=== PATIENT | female | born 1945 ===

== ENCOUNTER 2016-07-17 17:47 | Inpatient (IN) | payer MEDICAID, MEDICARE ==
[2016-07-17 17:47] VITALS: BMI 26.0
[2016-07-17 19:01] LABS: BASO % 0.6 % (0.0-2.0); EOS # 0.1 K/uL (0.0-0.7); EOS % 0.8 % (0.0-4.0); HEMATOCRIT 33.9 % (34.0-47.0); LYMPH # 1.9 K/uL (1.0-4.3); LYMPH % 24.9 % (20.0-40.0); MEAN CELL VOLUME 90.8 fL (81.0-99.0); MEAN CORPUSCULAR HEMOGLOBIN 30.6 pg (27.0-31.0); MEAN CORPUSCULAR HGB CONC 33.7 g/dL (33.0-37.0); MEAN PLATELET VOLUME 10.5 fL (7.2-11.7); MONO # 0.8 K/uL (0.0-0.8); MONO % 10.4 % (0.0-10.0); NRBC % 0.1 % (0.0-2.0); WHITE BLOOD COUNT 7.8 K/uL (4.8-10.8)
[2016-07-17 19:06] LABS: POTASSIUM 3.5 mmol/L (3.6-5.2)
[2016-07-17 19:08] LABS: BILIRUBIN,TOTAL 0.4 mg/dL (0.2-1.3)
[2016-07-17 19:09] LABS: ALB/GLOB RATIO 0.8 (1.0-2.1); CALCIUM 7.7 mg/dl (8.6-10.4); TOTAL PROTEIN 7.3 g/dL (6.3-8.3)
[2016-07-17 19:33] LABS: TROPONIN I 0.192 ng/mL (0.00-0.120)
[2016-07-17] MEDS ORDERED: Enoxaparin 40 mg Syringe SC STA (19:45)
--- NOTE | 2016-07-17 19:54 | C.PDOC ---
History Of Present Illness The patient, a 70y/o female whose PMHx includes ESRD (dialysis T,Th, F) presents to the ED after being sent from her fpc for evaluation of epigastric discomfort which began after he received Dialysis yesterday. Patient denies fever, chills, nausea, vomiting, diarrhea. Time Seen by Provider: 07/17/16 18:20 Chief Complaint (Nursing): Abdominal Pain History Per: Patient, Other (fpc ) History/Exam Limitations: no limitations Onset/Duration Of Symptoms: Days Current Symptoms Are (Timing): Still Present Location Of Pain/Discomfort: Epigastric Quality Of Discomfort: "Pain" Associated Symptoms: denies: Fever, Chills, Nausea, Vomiting, Diarrhea Abnormal Vaginal Bleeding: No Past Medical History Reviewed: Historical Data, Nursing Documentation, Vital Signs Vital Signs: Last Vital Signs Temp Pulse Resp BP Pulse Ox 100 07/17/16 19:58 - Medical History PMH: CHF (ECHO 2015 concentric LVH with EF 90%), Diabetes, HTN, End Stage Renal Disease, Chronic Kidney Disease Surgical History: CABG (2001) - [facility] Procedures APPLICATION OF SPLINT (09/15/13) COMPRESSION OF BACK USING PRESSURE DRESSING (03/20/16) COMPRESSION OF RIGHT UPPER LEG USING PRESSURE DRESSING (03/20/16) DRAINAGE OF BACK SKIN, EXTERNAL APPROACH (03/20/16) DRAINAGE OF BUTTOCK SKIN, EXTERNAL APPROACH (03/20/16) EXCISION OF BACK SKIN, EXTERNAL APPROACH (03/20/16) EXCISION OF BUTTOCK SKIN, EXTERNAL APPROACH (03/20/16) EXTRACTION OF BACK SKIN, EXTERNAL APPROACH (03/20/16) HEMODIALYSIS (08/11/14) INSERTION OF INFUSION DEV INTO SUP VENA CAVA, PERC APPROACH (05/09/16) INSERTION OF INFUSION DEVICE INTO R [facility], PERC APPROACH (10/21/15) PERFORMANCE OF URINARY FILTRATION, MULTIPLE (03/20/16) PERFORMANCE OF URINARY FILTRATION, SINGLE (05/09/16) REPOSITION RIGHT UPPER FEMUR WITH INT FIX, PERC APPROACH (02/23/16) TRANSFUSE NONAUT PLATELETS IN PERIPH VEIN, PERC (03/20/16) TRANSFUSE NONAUT RED BLOOD CELLS IN PERIPH VEIN, PERC (03/20/16) VENOUS CATHETERIZATION FOR RENAL DIALYSIS (01/05/13) Family History: States: Unknown Family Hx - Social History Hx Tobacco Use: No Hx Alcohol Use: No Hx Substance Use: No - Immunization History Hx Tetanus Toxoid Vaccination: Yes Hx Influenza Vaccination: Yes Hx Pneumococcal Vaccination: Yes Review Of Systems Except As Marked, All Systems Reviewed And Found Negative. Constitutional: Negative for: Fever, Chills Gastrointestinal: Positive for: Abdominal Pain (epigastric discomfort ). Negative for: Nausea, Diarrhea Physical Exam - Physical Exam Appears: Non-toxic, No Acute Distress, Other (elderly, frail ) Skin: Normal Color, Warm, Dry, Other (5x5cm stage 3 sacral decub) Head: Atraumatic, Normacephalic Eye(s): bilateral: Normal Inspection, EOMI Oral Mucosa: Moist Neck: Normal ROM, Supple Chest: Symmetrical, No Deformity, No Tenderness Cardiovascular: Rhythm Regular, No Murmur Respiratory: Normal Breath Sounds, No Rales, No Rhonchi, No Wheezing Gastrointestinal/Abdominal: Soft, No Tenderness, No Guarding, No Rebound Back: Normal Inspection, No Vertebral Tenderness, No Paraspinal Tenderness Extremity: Normal ROM, Capillary Refill (less than 2 seconds) Neurological/Psych: Oriented x3, Normal Speech, Normal Cognition Gait: Steady ED Course And Treatment - Laboratory Results Result Diagrams: 07/17/16 18:58 07/17/16 18:58 Lab Interpretation: Abnormal (trop 0.192H) ECG: Interpreted By Me ECG Rhythm: Sinus Rhythm, R BBB ECG Interpretation: Normal Rate From EC O2 Sat by Pulse Oximetry: 100 (on RA) Pulse Ox Interpretation: Normal - Radiology CXR: Interpreted by Me CXR Interpretation: Yes: No Acute Disease - Other Rad abd x 2 X-Ray: Interpreted by Me (+FOS) Progress Note: labs, EKG, CXR ordered and reviewed. Pt received Lovenox SC. Reevaluation Time: 19:55 Reassessment Condition: Unchanged (remains asymptomatic) - Physician Consult Information Outcome Of Conversation: 1930: d/w PMD- Dr. Merchant- ok to tele obs, ok with Lovenox SQ Medical Decision Making Medical Decision Making: probably low level trop due to ESRD on HD and strain from HTN lovenox given in ED start IV heparin in AM PRN Disposition Doctor Will See Patient In The: Hospital Counseled Patient/Family Regarding: Studies Performed, Diagnosis - Disposition Disposition: HOSPITALIZED Disposition Time: 19:56 Condition: GOOD - Clinical Impression Clinical Impression: Troponin I above reference range, Constipation - Scribe Statement The provider has reviewed the documentation as recorded by the Scribe (Catalina Carranza) Provider Attestation: All medical record entries made by the Scribe were at my direction and personally dictated by me. I have reviewed the chart and agree that the record accurately reflects my personal performance of the history, physical exam, medical decision making, and the department course for this patient. I have also personally directed, reviewed, and agree with the discharge instructions and disposition.
[2016-07-17] MEDS ORDERED: Enoxaparin 60 mg Syringe ONE (20:47)
[2016-07-17] MEDS: (Novolin R) Insulin Human Regular 100 units/ml vial SC SCH (22:31)
--- NOTE | 2016-07-18 09:30 | RAD ---
HISTORY: abd pain, epigastric COMPARISON: Comparison is made to the previous study dated 10/22/2015 FINDINGS: BOWEL: Moderate constipation is noted. Evidence of high-grade bowel obstruction. BONES: Degenerative changes are seen. OTHER FINDINGS: Right-sided hemodialysis catheter in the chest seen. The heart is mildly enlarged. Postsurgical changes are seen. Right iliac vascular stent is seen in place. Foci of vascular calcifications seen in the abdomen and pelvis P IMPRESSION: Moderate constipation. No evidence of bowel obstruction. No evidence of acute pathology in the chest.
--- NOTE | 2016-07-18 09:35 | RAD ---
PROCEDURE: CHEST RADIOGRAPH, 1 VIEW HISTORY: abd pain COMPARISON: Comparison is made to the previous study dated 05/09/2016 FINDINGS: LUNGS: Interval improvement in the lungs since the previous exam. No evidence of acute pulmonary disease. PLEURA: No pneumothorax or pleural fluid seen. CARDIOVASCULAR: The cardiac silhouette is mildly enlarged. Post cardiac surgery changes are noted. OSSEOUS STRUCTURES: Heterogeneous small sclerotic lesion at the right humeral neck again noted. VISUALIZED UPPER ABDOMEN: Normal. OTHER FINDINGS: Diffuse vascular calcification. Right-sided hemodialysis catheter is again seen in place. IMPRESSION: No active disease.
[2016-07-18] MEDS ORDERED: Influenza Virus Vaccine 45 mcg/0.5 ml Syr IM ONE (10:00)
[2016-07-18] MEDS ORDERED: Pneumococcal 23-Valent Vaccine IM ONE (10:00)
[2016-07-18] MEDS: (Novolin R) Insulin Human Regular 100 units/ml vial SC SCH ×4 (10:07→21:24)
[2016-07-18 17:07] LABS: INR 1.1
--- NOTE | 2016-07-18 18:43 | CON ---
DATE: 07/18/2016 REASON FOR CONSULTATION: Elevated troponin. The patient is a 70-year-old female who has history of coronary artery disease, status post coronary artery bypass surgery in 2001 in a [place] hospital, has end-stage renal disease, is jordon herrera on hemodialysis, history of sacral decubitus that required multiple debridements as well as incis ion and drainage for sacral as well as gluteal abscesses. The patient also sustained a fall and righ t hip fracture in February of last year and it is not clear if the patient underwent surgery for that fracture at that time. The hip and pelvis x-ray at that time revealed displaced and angulated fractu re of the right intertrochanteric femur associated with displacement of the lesser trochanter and sup erior displacement of the right femoral shaft. The patient was admitted because of epigastric discom fort while on hemodialysis. The patient denies retrosternal chest pain. SOCIAL HISTORY: Nonsmoker, nondrinker. MEDICATIONS: Hydralazine 50 mg q. 6 hours, aspirin 81 mg once a day, Coreg 3.125 mg twice a day, Cre stor 5 mg once a day, heparin 5000 units subcutaneously q. 8 hours, Plavix 75 mg once a day. REVIEW OF SYSTEMS: No reported hypertension. No reported ventricular arrhythmia. No reported fever or chills. PHYSICAL EXAMINATION: GENERAL: The patient is an elderly female who does not appear to be in acute distress. VITAL SIGNS: Blood pressure 156/50, heart rate 62, temperature 98, respiration 18. HEENT: Normocephalic. NECK: No JVD. CHEST: Bilateral rhonchi. HEART: S1, S2 regular. ABDOMEN: Soft. EXTREMITIES: Significant muscle wasting. LABORATORIES: SMA-7: Sodium 134, potassium 3.5, chloride 89, CO2 35, glucose 187, BUN 17, creatinin e 1.6. Troponins were 0.192, 0.235, 0.219. EKG revealed sinus rhythm, right bundle branch block. E chocardiograph study report in February of last year revealed normal ejection fraction, type I diastol ic dysfunction. ASSESSMENT: 1. Consider non-ST elevation myocardial infarction. 2. End-stage renal disease, on hemodialysis. 3. Coronary artery disease, status post coronary artery bypass surgery in the past. RECOMMENDATIONS: Continue current hydralazine 50 mg q. 6 hours, aspirin 81 mg once a day, Coreg at 3 .125 mg once a day, subcutaneous heparin 5000 units q. 8 hours, Plavix 75 mg once a day. Obtain veno us Doppler of the lower extremities, serum D-dimer. The patient is a poor candidate for invasive car diac workup. Foster Go MD cc: [id number] TT: 07/18/2016 18:43:13 Confirmation # [id number] Dictation # [id number] en
--- NOTE | 2016-07-18 22:11 | CP.PCM.HP ---
History of Present Illness - History of Present Illness History of Present Illness: Patienceif complain: acute epigastric pain HPI: The patient, a 70y/o female whose PMHx includes ESRD (dialysis T,, ) , sevre visual impairment, dependend on family members for ADl, wheelchair bound presents to the ED after being sent from her halfway for evaluation of epigastric discomfort which began after he received Dialysis yesterday. Patient denies fever, chills, nausea, vomiting, diarrhea. denies any chest pain, orthopnea, PND, change in color of urine, feaces, eyes Present on Admission - Present on Admission Any Indicators Present on Admission: No Review of Systems - Review of Systems Systems not reviewed;Unavailable: Acuity of Condition - Constitutional Constitutional: Fatigue, Lethargy, Malaise - EENT Eyes: Blurred Vision Nose/Mouth/Throat: absent: As Per HPI, Epistaxis, Nasal Congestion, Nasal Discharge, Nasal Obstruction, Nasal Trauma, Nose Pain, Post Nasal Drip, Sinus Pain, Sinus Pressure, Bleeding Gums, Change in Voice, Dental Pain, Dry Mouth, Dysphagia, Halitosis, Hoarsness, Lip Swelling, Mouth Lesions, Mouth Pain, Odynophagia, Sore Throat, Throat Swelling, Tongue Swelling, Facial Pain, Neck Pain, Neck Mass, Other - Cardiovascular Cardiovascular: absent: As Per HPI, Acrocyanosis, Chest Pain, Chest Pain at Rest , Chest Pain with Activity, Claudication, Diaphoresis, Dyspnea, Dyspnea on Exertion, Edema, Irregular Heart Rhythm, Pain Radiating to Arm/Neck/Jaw, Leg Edema, Leg Ulcers, Lightheadedness, Orthopnea, Palpitations, Paroxysmal Nocturnal Dyspnea, Pedal Edema, Radiating Pain, Rapid Heart Rate, Slow Heart Rate, Syncope, Other - Respiratory Respiratory: absent: As Per HPI, Cough, Dyspnea, Hemoptysis, Dyspnea on Exertion , Wheezing, Snoring, Stridor, Pain on Inspiration, Chest Congestion, Excessive Mucous Production, Change in Mucous Color, Pain with Coughing, Other - Gastrointestinal Gastrointestinal: Abdominal Pain - Genitourinary Genitourinary: absent: As Per HPI, Change in Urinary Stream, Difficulty Urinating, Dysuria, Flank Pain, Hematuria, Pyuria, Nocturia, Urinary Incontinence, Urinary Frequency, Urinary Hesitance, Urinary Urgency, Voiding Freq/Small Amts, Freq UTI, Hx Renal/Bladder Calculi, Hx /Renal Surgery, Bladder Distension, Other - Integumentary Additional comments: healing sacral decubitis Past Patient History - Past Medical History & Family History Past Medical History?: Yes - Past Social History Smoking Status: Never Smoked - CARDIAC Hx Congestive Heart Failure: Yes (ECHO 2015 concentric LVH with EF 90%) Hx Hypertension: Yes - PULMONARY Hx Respiratory Disorders: No - NEUROLOGICAL Hx Neurological Disorder: Yes Hx Dizziness: Yes - HEENT Hx HEENT Problems: Yes Other/Comment: right eye-blind;left eye-blurry - RENAL Hx Chronic Kidney Disease: Yes - ENDOCRINE/METABOLIC Hx Diabetes Mellitus Type 2: Yes - HEMATOLOGICAL/ONCOLOGICAL Hx Blood Disorders: No - INTEGUMENTARY Hx Dermatological Problems: No - MUSCULOSKELETAL/RHEUMATOLOGICAL Hx Falls: Yes - GASTROINTESTINAL Hx Gastrointestinal Disorders: No - GENITOURINARY/GYNECOLOGICAL Hx Genitourinary Disorders: No - PSYCHIATRIC Hx Substance Use: No - SURGICAL HISTORY Hx Coronary Artery Bypass Graft: Yes (2001) - ANESTHESIA Hx Anesthesia: Yes Hx Anesthesia Reactions: No Hx Malignant Hyperthermia: No Meds Home Medications: Home Medication List Medication Instructions Recorded Confirmed Type Carvedilol [Coreg] 6.25 mg PO BID #60 tab 07/20/16 Rx Clonazepam [Klonopin] 0.5 mg PO HS PRN #10 tablet 07/20/16 Rx Clopidogrel [Plavix] 75 mg PO DAILY #30 tab 07/20/16 Rx Famotidine [Pepcid] 20 mg PO DAILY #30 tab 07/20/16 Rx Multivitamin [Multi-Vitamin Daily] 1 each PO DAILY #30 tablet 07/20/16 Rx Pravastatin Sodium 80 mg PO HS #30 tablet 07/20/16 Rx hydrALAZINE [Apresoline] 100 mg PO Q8 #90 tab 07/20/16 Rx Allergies/Adverse Reactions: Allergies Allergy/AdvReac Type Severity Reaction Status Date / Time No Known Allergies Allergy Verified 07/17/16 18:05 Physical Exam - Constitutional Appears: No Acute Distress - Eye Exam Eye Exam: EOMI, Normal appearance, PERRL Pupil Exam: NORMAL ACCOMODATION, PERRL Additional comments: poor visual acuity - ENT Exam ENT Exam: Mucous Membranes Moist, Normal Exam - Cardiovascular Exam Cardiovascular Exam: +S1, +S2 Additional comments: s3 positive 2/6 ESM at apex - GI/Abdominal Exam GI & Abdominal Exam: Normal Bowel Sounds, Soft, Tenderness Additional comments: epigastric tenderness - Extremities Exam Additional comments: lower extremity weakness poor muscle mass [place] is equivocal decresaed sensation in feet b/l - Neurological Exam Neurological exam: Abnormal Gait, Oriented x3 - Skin Skin Exam: Dry, Erythema, Normal Color, Warm - Additional Findings Additional findings: healing sacral decubitis with granulation tissue Results - Vital Signs Recent Vital Signs: Last Vital Signs Temp 98 F 07/18/16 15:43 Pulse 65 07/18/16 15:43 Resp 20 07/18/16 15:43 BP 151/54 H 07/18/16 15:43 Pulse Ox 100 07/18/16 15:43 - Labs Result Diagrams: 07/20/16 06:16 07/20/16 06:16 Labs: Laboratory Results - last 24 hr 07/17/16 07/18/16 07/18/16 22:18 01:20 06:42 PT INR APTT D-Dimer, Quantitative POC Glucose (mg/dL) 233 H 178 H Total Creatine Kinase 20 L CK-MB (Mass) 0.69 Troponin I, Quant 0.2350 H* 07/18/16 07/18/16 07/18/16 11:00 11:08 16:13 PT INR APTT D-Dimer, Quantitative POC Glucose (mg/dL) 178 H 254 H Total Creatine Kinase < 20 L CK-MB (Mass) 0.46 Troponin I, Quant 0.2190 H* 07/18/16 07/18/16 16:44 21:28 PT 11.7 INR 1.1 APTT 40 H D-Dimer, Quantitative 977 H POC Glucose (mg/dL) 114 H Total Creatine Kinase CK-MB (Mass) Troponin I, Quant Assessment & Plan (1) Chest pain Status: Acute Comment: rule out acutre SD. troponons borderline. cadiology eval (2) Decubitus ulcer Status: Acute (3) Diabetes mellitus Status: Chronic (4) ESRD (end stage renal disease) Status: Chronic (5) Hypertension Status: Chronic (6) Type 2 DM mild nonproliferative retinopathy, macular edema, uncontrol Status: Acute
[2016-07-19] MEDS: (Novolin R) Insulin Human Regular 100 units/ml vial SC SCH ×4 (08:16→22:18)
--- NOTE | 2016-07-19 09:25 | CARD ---
APPROVED REPORT EKG Measurement Heart [id number] OH [id number] <Conclusion> Normal sinus rhythm Right bundle branch block Abnormal ECG
--- NOTE | 2016-07-19 13:57 | CP.PCM.CON ---
History of Present Illness - History of Present Illness History of Present Illness: 70y/o HF on dialysis x many years; admitted for abdominal pains and new elevation in TNI PMH: ESRD HTN NEPHROSCLEROSIS CAD OLD CVA DEMENTIA SACRAL DECUBITII CONSULT DICTATED WILL ARRANGE FOR DIALYSIS Past Patient History - Past Medical History & Family History Past Medical History?: Yes - Past Social History Smoking Status: Never Smoked - CARDIAC Hx Congestive Heart Failure: Yes (ECHO 2014 concentric LVH with EF 90%) Hx Hypertension: Yes - PULMONARY Hx Respiratory Disorders: No - NEUROLOGICAL Hx Neurological Disorder: Yes Hx Dizziness: Yes - HEENT Hx HEENT Problems: Yes Other/Comment: right eye-blind;left eye-blurry - RENAL Hx Chronic Kidney Disease: Yes - ENDOCRINE/METABOLIC Hx Diabetes Mellitus Type 2: Yes - HEMATOLOGICAL/ONCOLOGICAL Hx Blood Disorders: No - INTEGUMENTARY Hx Dermatological Problems: No - MUSCULOSKELETAL/RHEUMATOLOGICAL Hx Falls: Yes - GASTROINTESTINAL Hx Gastrointestinal Disorders: No - GENITOURINARY/GYNECOLOGICAL Hx Genitourinary Disorders: No - PSYCHIATRIC Hx Substance Use: No - SURGICAL HISTORY Hx Coronary Artery Bypass Graft: Yes (2001) - ANESTHESIA Hx Anesthesia: Yes Hx Anesthesia Reactions: No Hx Malignant Hyperthermia: No Meds Allergies/Adverse Reactions: Allergies Allergy/AdvReac Type Severity Reaction Status Date / Time No Known Allergies Allergy Verified 07/17/16 18:05 - Medications Medications: Current Medications Acetaminophen (Tylenol 325mg Tab) 650 mg PO Q6 PRN PRN Reason: Pain, moderate (4-7) Last Admin: 07/19/16 13:25 Dose: 650 mg Amlodipine Besylate (Norvasc) 5 mg PO DAILY [facility] Last Admin: 07/19/16 09:52 Dose: 5 mg Aspirin (Aspirin Chewable) 81 mg PO DAILY [facility] Last Admin: 07/19/16 09:52 Dose: 81 mg Carvedilol (Coreg) 6.25 mg PO BID [facility] Clopidogrel Bisulfate (Plavix) 75 mg PO DAILY [facility] Last Admin: 07/19/16 09:52 Dose: 75 mg Famotidine (Pepcid) 20 mg PO DAILY [facility] Last Admin: 07/19/16 09:52 Dose: 20 mg Heparin Sodium (Porcine) (Heparin) 5,000 units SC Q8 [facility] Last Admin: 07/19/16 13:25 Dose: 5,000 units Hydralazine HCl (Apresoline) 50 mg PO Q6H [facility] Last Admin: 07/19/16 09:52 Dose: 50 mg Insulin Human Regular (Novolin R) 0 unit SC ACHS ASHISH PRN Reason: Protocol Last Admin: 07/19/16 13:25 Dose: 2 unit Oxycodone/Acetaminophen (Percocet 5/325 Mg Tab) 1 tab PO Q8 PRN PRN Reason: Pain, severe (8-10) Stop: 07/22/16 14:01 Rosuvastatin Calcium (Crestor) 5 mg PO HS [facility] Last Admin: 07/18/16 21:23 Dose: 5 mg Results - Vital Signs Recent Vital Signs: Last Vital Signs Temp 97.9 F 07/19/16 08:10 Pulse 68 07/19/16 08:10 Resp 18 07/19/16 08:10 BP 215/62 H 07/19/16 08:10 Pulse Ox 97 07/19/16 08:10 - Labs Result Diagrams: 07/17/16 18:58 07/17/16 18:58 Labs: Laboratory Results - last 24 hr 07/18/16 07/18/16 07/18/16 16:13 16:44 21:28 PT 11.7 INR 1.1 APTT 40 H D-Dimer, Quantitative 977 H POC Glucose (mg/dL) 254 H 114 H 07/19/16 07/19/16 06:11 11:56 PT INR APTT D-Dimer, Quantitative POC Glucose (mg/dL) 143 H 210 H
--- NOTE | 2016-07-19 16:51 | PN ---
DATE: 07/19/2016 SUBJECTIVE: The patient denies any chest pain. Her sacral decubitus is much better according to the attending nurse who is familiar with the patient from the previous admission. PHYSICAL EXAMINATION: VITAL SIGNS: Blood pressure 181/65, heart rate 69, temperature 98.2, respirations 18. HEENT: Normocephalic. NECK: No JVD. CHEST: Minimal rhonchi. HEART: S1, S2 regular. EXTREMITIES: Trace leg edema. LABORATORIES: Today's blood sugar is 143 and 210. Venous Doppler of the lower extremity was perform ed; however, the report is still pending. ASSESSMENT: 1. Consider non-ST elevation myocardial infarction. 2. Coronary artery disease with history of coronary artery bypass surgery in 2001. 3. End-stage renal disease on hemodialysis. 4. Significant sacral decubitus with previous multiple debridement and incision and drainage for glu teal abscess. RECOMMENDATIONS: Continue subcutaneous heparin 5000 units q.8 hours, aspirin 81 mg once a day, Coreg at 6.25 mg twice a day, hydralazine at 50 mg q.6 hours, Plavix 75 mg once a day. The patient is a p oor candidate for invasive cardiac workup and conservative medical approach is justified. The patien t will be transferred to 6 [place] telemetry unit in anticipation of closing the fifth floor. Foster Go MD cc: [id number] TT: 07/19/2016 16:50:06 Confirmation # [id number] Dictation # [id number]
--- NOTE | 2016-07-19 17:08 | VASCLAB ---
PROCEDURE: Lower Extremity Venous Duplex Exam. HISTORY: r/o DVT PRIORS: None. TECHNIQUE: Bilateral common femoral, femoral, popliteal and posterior tibial, peroneal and great saphenous veins were evaluated. Flow was assessed with color Doppler, compressibility, assessment of phasic flow and augmentation response. Report prepared by JULIO C Carr, RVT FINDINGS: RIGHT: 1. Common Femoral Vein: 1.1. Compressibility - Fully compressible: Thrombus - None : Flow - Phasic: Augmentation -Normal: Reflux - None. 2. Femoral Vein: 2.1. Compressibility - Fully compressible: Thrombus - None : Flow - Phasic: Augmentation -Normal: Reflux - None. 3. Popliteal Vein: 3.1. Compressibility - Fully compressible: Thrombus - None : Flow - Phasic: Augmentation -Normal: Reflux - None. 4. Posterior Tibial Vein: 4.1. Compressibility - Fully compressible: Thrombus - None: Flow - Phasic: Augmentation -Normal: Reflux - None. 5. Peroneal Vein: 5.1. Compressibility - Fully compressible: Thrombus - None: Flow - Phasic: Augmentation -Normal: Reflux - None. 6. Great Saphenous Vein: 6.1. Compressibility - Not optimally obtained. LEFT: 1. Common Femoral Vein: 1.1. Compressibility - Fully compressible: Thrombus - None: Flow - Phasic: Augmentation -Normal: Reflux - None. 2. Femoral Vein: 2.1. Compressibility - Fully compressible: Thrombus - None: Flow - Phasic: Augmentation -Normal: Reflux - None. 3. Popliteal Vein: 3.1. Compressibility - Fully compressible: Thrombus - None : Flow - Phasic: Augmentation -Normal: Reflux - None. OTHER FINDINGS: Right: None significant. Left: The left peroneal, posterior tibial and greater saphenous vein are not visualized. IMPRESSION: Right: No evidence of deep or superficial vein thrombosis of the right lower extremity. Normal valve function noted of the right side. Left: No evidence of deep or superficial vein thrombosis of the left lower extremity visualized veins. Normal valve function noted of the left side.
[2016-07-19] MEDS: Oxycodone/Acetaminophen 5/325 mg Tab PO PRN (22:32)
--- NOTE | 2016-07-20 02:12 | CP.PCM.PN ---
Subjective - Date & Time of Evaluation Date of Evaluation: 07/19/16 Time of Evaluation: 12:31 - Subjective Subjective: Pt seen and evaluated, cardiac enzymes are borderline positive though denies any chest pain now. pt is seen by cardiology Objective - Vital Signs/Intake and Output Vital Signs (last 24 hours): Temp Pulse Resp BP Pulse Ox 98.0 F 71 20 142/62 99 07/19/16 15:54 07/19/16 15:54 07/19/16 15:54 07/19/16 15:54 07/19/16 15:54 - Medications Medications: Current Medications Acetaminophen (Tylenol 325mg Tab) 650 mg PO Q6 PRN PRN Reason: Pain, moderate (4-7) Last Admin: 07/19/16 13:25 Dose: 650 mg Amlodipine Besylate (Norvasc) 5 mg PO DAILY [facility] Last Admin: 07/19/16 09:52 Dose: 5 mg Aspirin (Aspirin Chewable) 81 mg PO DAILY [facility] Last Admin: 07/19/16 09:52 Dose: 81 mg Carvedilol (Coreg) 6.25 mg PO BID [facility] Last Admin: 07/19/16 17:48 Dose: 6.25 mg Clopidogrel Bisulfate (Plavix) 75 mg PO DAILY [facility] Last Admin: 07/19/16 09:52 Dose: 75 mg Famotidine (Pepcid) 20 mg PO DAILY [facility] Last Admin: 07/19/16 09:52 Dose: 20 mg Heparin Sodium (Porcine) (Heparin) 5,000 units SC Q8 [facility] Last Admin: 07/19/16 22:16 Dose: 5,000 units Hydralazine HCl (Apresoline) 50 mg PO Q6H [facility] Last Admin: 07/19/16 22:16 Dose: 50 mg Insulin Human Regular (Novolin R) 0 unit SC ACHS [facility] PRN Reason: Protocol Last Admin: 07/19/16 22:18 Dose: Not Given Oxycodone/Acetaminophen (Percocet 5/325 Mg Tab) 1 tab PO Q8 PRN PRN Reason: Pain, severe (8-10) Stop: 07/22/16 14:01 Last Admin: 07/19/16 22:32 Dose: 1 tab Rosuvastatin Calcium (Crestor) 5 mg PO [facility] Last Admin: 07/18/16 21:23 Dose: 5 mg - Labs Labs: PT 11.7 SECONDS (9.7-12.2) 07/18/16 16:44 INR 1.1 07/18/16 16:44 APTT 40 SECONDS (21-34) H 07/18/16 16:44 - Constitutional Appears: No Acute Distress - Head Exam Head Exam: ATRAUMATIC, NORMAL INSPECTION, NORMOCEPHALIC - Eye Exam Eye Exam: EOMI, Normal appearance, PERRL Pupil Exam: NORMAL ACCOMODATION, PERRL - Respiratory Exam Respiratory Exam: Clear to Ausculation Bilateral, NORMAL BREATHING PATTERN - Cardiovascular Exam Cardiovascular Exam: REGULAR RHYTHM, +S1, +S2 Additional comments: s3 - GI/Abdominal Exam GI & Abdominal Exam: Soft, Normal Bowel Sounds. absent: Tenderness - Rectal Exam Rectal Exam: Deferred Assessment and Plan (1) Chest pain Status: Acute (2) Decubitus ulcer Status: Acute (3) Diabetes mellitus Status: Chronic (4) ESRD (end stage renal disease) Status: Chronic (5) Hypertension Status: Chronic (6) Type 2 DM mild nonproliferative retinopathy, macular edema, uncontrol Status: Acute
[2016-07-20 06:36] LABS: POTASSIUM 3.5 mmol/L (3.6-5.2)
[2016-07-20 06:39] LABS: CALCIUM 7.9 mg/dl (8.6-10.4)
[2016-07-20 06:40] LABS: BASO % 0.5 % (0.0-2.0); EOS # 0.2 K/uL (0.0-0.7); EOS % 3.5 % (0.0-4.0); LYMPH # 1.8 K/uL (1.0-4.3); LYMPH % 37.4 % (20.0-40.0); MEAN CELL VOLUME 90.6 fL (81.0-99.0); MEAN CORPUSCULAR HGB CONC 34.3 g/dL (33.0-37.0); MEAN PLATELET VOLUME 11.1 fL (7.2-11.7); MONO # 0.6 K/uL (0.0-0.8); MONO % 12.1 % (0.0-10.0); NRBC % 0.1 % (0.0-2.0); RED CELL DISTRIBUTION WIDTH 15.1 % (11.5-14.5); WHITE BLOOD COUNT 4.9 K/uL (4.8-10.8)
[2016-07-20] MEDS: (Novolin R) Insulin Human Regular 100 units/ml vial SC SCH ×2 (08:33→11:32)
--- NOTE | 2016-07-20 10:21 | CON ---
DATE: 07/19/2016 The patient is a 70-year-old female on dialysis many years. Presented on 07/17 abdominal pa in post-dialysis; was felt to have gastritis. In the Emergency Room she was found to have elevated t roponin and she was admitted. PAST MEDICAL HISTORY: That of end-stage renal disease, hypertension, nephrosclerosis, coronary arter y disease, an old CVA, dementia, sacral decubiti, and she has diabetes mellitus type 2. PAST SURGICAL HISTORY: AV fistula which has failed, a new PermCath placement, and she has a sacral decubiti which has been healing, and had multiple debridements. SOCIAL HISTORY: Negative for smoking, alcohol abuse, or illicit drug use. FAMILY HISTORY: Noncontributory. No family history of chronic kidney disease. REVIEW OF SYSTEMS: Significant for mostly bedridden. She is blind in the right eye, and she has bad vision. She has decreased activity because of decubiti and multiple medical problems. She often ge ts dyspneic when she gets fluid overloaded. Also, other history is coronary artery disease status po st coronary artery bypass graft surgery. MEDICATIONS: Include carvedilol, hydralazine, Crestor, amlodipine, Pepcid. On physical exam she is a well-developed woman. Blood pressure initially at 159/51, now at 215/62; temperature 97.9, pulse 68, pulse ox was 97% on ro om air. She is anicteric. Mouth was clear. No JVD. LUNG NICHOLS: Clear. HEART: Regular rhythm, no murmur. Right IJ catheter was in place. She has a failed left arm AV fis martha. ABDOMEN: Soft, benign. No peripheral edema. She has a sacral decubiti which is now stage II. NEUROLOGIC: No focal deficits. The blood work has showed troponin that was slightly elevated at , potassium is 3.5, creatinine was 1.6, BUN 17, hemoglobin was 11.4. IMPRESSION: She has end-stage renal disease, hypertension which is uncontrolled. She has nephroscle rosis as cause of renal failure, dementia from an old CVA, and sacral decubiti. Pressure will be controlled with dialysis and increasing carvedilol dose. Cardiology is following patient now for the elevated troponins. Will follow up. Yoni Caldwell MD cc: [id number] TT: 07/19/2016 19:21:32 Confirmation # [id number] Dictation # [id number]
--- NOTE | 2016-07-20 12:47 | CARD ---
APPROVED REPORT EKG Measurement Heart [id number] <Conclusion> Normal sinus rhythm Possible Left atrial enlargement Nonspecific intraventricular block Cannot rule out Anterior infarct, age undetermined T wave abnormality, consider lateral ischemia Abnormal ECG
--- NOTE | 2016-07-20 12:59 | CP.PCM.PN ---
Subjective - Date & Time of Evaluation Date of Evaluation: 07/20/16 Time of Evaluation: 12:57 - Subjective Subjective: pt denies any chest pain/sob. poor appetite chronic decub ulcer for hd today labile bp, noted Objective - Vital Signs/Intake and Output Vital Signs (last 24 hours): Temp Pulse Resp BP Pulse Ox 98 F 77 16 114/38 L 98 07/20/16 12:30 07/20/16 12:30 07/20/16 12:30 07/20/16 12:30 07/20/16 12:30 - Medications Medications: Current Medications Acetaminophen (Tylenol 325mg Tab) 650 mg PO Q6 PRN PRN Reason: Pain, moderate (4-7) Last Admin: 07/19/16 13:25 Dose: 650 mg Amlodipine Besylate (Norvasc) 5 mg PO DAILY [facility] Last Admin: 07/20/16 12:36 Dose: 5 mg Aspirin (Aspirin Chewable) 81 mg PO DAILY [facility] Last Admin: 07/20/16 11:32 Dose: Not Given Carvedilol (Coreg) 6.25 mg PO BID [facility] Last Admin: 07/20/16 11:32 Dose: Not Given Clopidogrel Bisulfate (Plavix) 75 mg PO DAILY [facility] Last Admin: 07/20/16 11:33 Dose: Not Given Famotidine (Pepcid) 20 mg PO DAILY [facility] Last Admin: 07/20/16 11:33 Dose: Not Given Heparin Sodium (Porcine) (Heparin) 5,000 units SC Q8 [facility] Last Admin: 07/20/16 06:08 Dose: 5,000 units Hydralazine HCl (Apresoline) 100 mg PO Q8 [facility] Last Admin: 07/20/16 11:03 Dose: 100 mg Insulin Human Regular (Novolin R) 0 unit SC [facility] PRN Reason: Protocol Last Admin: 07/20/16 11:32 Dose: Not Given Oxycodone/Acetaminophen (Percocet 5/325 Mg Tab) 1 tab PO Q8 PRN PRN Reason: Pain, severe (8-10) Stop: 07/22/16 14:01 Last Admin: 07/19/16 22:32 Dose: 1 tab Rosuvastatin Calcium (Crestor) 5 mg PO HS [facility] Last Admin: 07/18/16 21:23 Dose: 5 mg - Labs Labs: 07/20/16 06:16 07/20/16 06:16 PT 11.7 SECONDS (9.7-12.2) 07/18/16 16:44 INR 1.1 07/18/16 16:44 APTT 40 SECONDS (21-34) H 07/18/16 16:44 - Constitutional Appears: Non-toxic, No Acute Distress, Chronically Ill - Head Exam Head Exam: NORMAL INSPECTION - Eye Exam Eye Exam: Normal appearance - ENT Exam ENT Exam: Mucous Membranes Moist, Normal Exam - Neck Exam Neck Exam: Normal Inspection - Respiratory Exam Respiratory Exam: Clear to Ausculation Bilateral, NORMAL BREATHING PATTERN - Cardiovascular Exam Cardiovascular Exam: REGULAR RHYTHM, RRR - GI/Abdominal Exam GI & Abdominal Exam: Distended, Soft, Normal Bowel Sounds - Extremities Exam Extremities Exam: Normal Inspection Additional comments: permcath Assessment and Plan (1) Chest pain Status: Acute (2) CAD (coronary artery disease) Status: Chronic (3) Uncontrolled hypertension Status: Resolved (4) Anemia Status: Acute (5) Decubitus ulcer Status: Acute (6) ESRD (end stage renal disease) on dialysis Status: Acute - Assessment and Plan (Free Text) Assessment: hd today add nepro cardiology management bp improved with current meds
--- NOTE | 2016-07-20 14:35 | CP.PCM.PN ---
Subjective - Date & Time of Evaluation Date of Evaluation: 07/20/16 Time of Evaluation: 14:00 - Subjective Subjective: Pt seen and examined today after HD, denies any chest pain, sob, palpitations, headache ,dizziness, N/V, c/o pain to the sacral area No overnight events recorded on monitor Objective - Vital Signs/Intake and Output Vital Signs (last 24 hours): Temp Pulse Resp BP Pulse Ox 98 F 78 16 181/54 H 98 07/20/16 12:30 07/20/16 12:55 07/20/16 12:55 07/20/16 12:55 07/20/16 12:30 - Medications Medications: Current Medications Acetaminophen (Tylenol 325mg Tab) 650 mg PO Q6 PRN PRN Reason: Pain, moderate (4-7) Last Admin: 07/19/16 13:25 Dose: 650 mg Amlodipine Besylate (Norvasc) 5 mg PO DAILY [facility] Last Admin: 07/20/16 12:36 Dose: 5 mg Aspirin (Aspirin Chewable) 81 mg PO DAILY [facility] Last Admin: 07/20/16 11:32 Dose: Not Given Carvedilol (Coreg) 6.25 mg PO BID [facility] Last Admin: 07/20/16 11:32 Dose: Not Given Clopidogrel Bisulfate (Plavix) 75 mg PO DAILY [facility] Last Admin: 07/20/16 11:33 Dose: Not Given Famotidine (Pepcid) 20 mg PO DAILY [facility] Last Admin: 07/20/16 11:33 Dose: Not Given Heparin Sodium (Porcine) (Heparin) 5,000 units SC Q8 [facility] Last Admin: 07/20/16 06:08 Dose: 5,000 units Hydralazine HCl (Apresoline) 100 mg PO Q8 [facility] Last Admin: 07/20/16 11:03 Dose: 100 mg Insulin Human Regular (Novolin R) 0 unit SC ACHS [facility] PRN Reason: Protocol Last Admin: 07/20/16 11:32 Dose: Not Given Oxycodone/Acetaminophen (Percocet 5/325 Mg Tab) 1 tab PO Q8 PRN PRN Reason: Pain, severe (8-10) Stop: 07/22/16 14:01 Last Admin: 07/19/16 22:32 Dose: 1 tab Rosuvastatin Calcium (Crestor) 5 mg PO [facility] Last Admin: 07/18/16 21:23 Dose: 5 mg - Labs Labs: 07/20/16 06:16 07/20/16 06:16 PT 11.7 SECONDS (9.7-12.2) 07/18/16 16:44 INR 1.1 07/18/16 16:44 APTT 40 SECONDS (21-34) H 07/18/16 16:44 Assessment and Plan - Assessment and Plan (Free Text) Assessment: A/P 69 YR old female admitted for chest pain / NSTEMI stage 4 healing ulcer troponin - borderline elevated Dr. Go consulted , poor candidate for invasive cardiac work up and recommends conservative management d/w with Dr. Go , cleared for discharge home from cardiology standpoint D/w Dr. Merchant, stable for discharge home today and f/u with Dr. Merchant office in 1 week and continue HD as scheduled Discharge plan discussed with patient daughter, who understands and agrees with plan RX sent to pharmacy
--- NOTE | 2016-07-20 14:36 | PN ---
DATE: 07/20/2016 The patient denies any chest pain. She did experience epigastric discomfort during her hemodialysis. The patient was experiencing constipation which improved after a laxative. Her epigastric discomfo rt has also improved. PHYSICAL EXAMINATION: VITAL SIGNS: Blood pressure 181/54, heart rate 77, temperature 98, respirations 16. HEENT: Pale conjunctivae. CHEST: Clear. HEART: S1, S2 regular. EXTREMITIES: Significant muscle wasting. LABORATORIES: Hemoglobin and hematocrit 10.3 and 30.0, white count and platelet count are within nor mal limits. Today's potassium is 3.5, BUN and creatinine of 31 and 3.9, calcium 7.9. ASSESSMENT: 1. Chest pain, consider non-ST elevation myocardial infarction. 2. History of coronary artery disease, status post coronary artery bypass surgery. 3. Uncontrolled diabetes mellitus. 4. End-stage renal disease on hemodialysis. 5. Sacral decubitus. 6. Hypertension. RECOMMENDATIONS: Continue conservative medical approach including hydralazine 100 mg q. 8 hours, asp irin 81 mg once a day, subcutaneous heparin 5000 units q. 8 hours, Crestor at 5 mg once a day, Plavix 75 mg once a day, Coreg 6.25 mg twice a day. The patient can be discharged on oral Coreg, Crestor, aspirin, Plavix, as well as hydralazine. Foster Go MD cc: [id number] TT: 07/20/2016 14:35:31 Confirmation # [id number] Dictation # [id number] refugio
[2016-07-20 16:27] VITALS: BP 193/67; PULSE 80; RESP 20; TEMP 99.2; O2SAT 96
[2016-07-20] MEDS: Oxycodone/Acetaminophen 5/325 mg Tab PO PRN (16:41)
--- NOTE | 2016-07-21 00:57 | CP.PCM.DIS ---
Provider - Provider Date of Admission: 07/17/16 19:48 Attending physician: Sergio Merchant MD Time Spent in preparation of Discharge (in minutes): 30 Diagnosis - Discharge Diagnosis (1) Chest pain Status: Acute (2) Decubitus ulcer Status: Acute (3) Diabetes mellitus Status: Chronic (4) ESRD (end stage renal disease) Status: Chronic (5) Hypertension Status: Chronic (6) Type 2 DM mild nonproliferative retinopathy, macular edema, uncontrol Status: Acute Hospital Course - Lab Results Lab Results: Most Recent Lab Values WBC 4.9 K/uL (4.8-10.8) 07/20/16 06:16 RBC 3.31 Mil/uL (3.80-5.20) L 07/20/16 06:16 Hgb 10.3 g/dL (11.0-16.0) L 07/20/16 06:16 Hct 30.0 % (34.0-47.0) L 07/20/16 06:16 MCV 90.6 fL (81.0-99.0) 07/20/16 06:16 MCH 31.0 pg (27.0-31.0) 07/20/16 06:16 MCHC 34.3 g/dL (33.0-37.0) 07/20/16 06:16 RDW 15.1 % (11.5-14.5) H 07/20/16 06:16 Plt Count 202 K/uL (130-400) 07/20/16 06:16 MPV 11.1 fL (7.2-11.7) 07/20/16 06:16 Neut % (Auto) 46.5 % (50.0-75.0) L 07/20/16 06:16 Lymph % (Auto) 37.4 % (20.0-40.0) 07/20/16 06:16 [place] % (Auto) 12.1 % (0.0-10.0) H 07/20/16 06:16 Eos % (Auto) 3.5 % (0.0-4.0) 07/20/16 06:16 Baso % (Auto) 0.5 % (0.0-2.0) 07/20/16 06:16 Neut # 2.3 K/uL (1.8-7.0) 07/20/16 06:16 Lymph # 1.8 K/uL (1.0-4.3) 07/20/16 06:16 [place] # 0.6 K/uL (0.0-0.8) 07/20/16 06:16 Eos # 0.2 K/uL (0.0-0.7) 07/20/16 06:16 Baso # 0.0 K/uL (0.0-0.2) 07/20/16 06:16 PT 11.7 SECONDS (9.7-12.2) 07/18/16 16:44 INR 1.1 07/18/16 16:44 APTT 40 SECONDS (21-34) H 07/18/16 16:44 D-Dimer, Quantitative 977 ng/mlDDU (0-243) H 07/18/16 16:44 Sodium 136 mmol/L (132-148) 07/20/16 06:16 Potassium 3.5 mmol/L (3.6-5.2) L 07/20/16 06:16 Chloride 93 mmol/L (98-107) L 07/20/16 06:16 Carbon Dioxide 29 mmol/L (22-30) 07/20/16 06:16 Anion Gap 18 (10-20) 07/20/16 06:16 BUN 31 mg/dL (7-17) H 07/20/16 06:16 Creatinine 3.9 MG/DL (0.7-1.2) H 07/20/16 06:16 Est GFR ( Amer) 14 07/20/16 06:16 Est GFR (Non-Af Amer) 11 07/20/16 06:16 POC Glucose (mg/dL) 148 mg/dL (65-110) H 07/20/16 16:28 Random Glucose 91 mg/dL (65-105) 07/20/16 06:16 Calcium 7.9 mg/dl (8.6-10.4) L 07/20/16 06:16 Total Bilirubin 0.4 mg/dL (0.2-1.3) 07/17/16 18:58 AST 44 U/L (14-36) H D 07/17/16 18:58 ALT 25 U/L (9-52) 07/17/16 18:58 Alkaline Phosphatase 106 U/L (38-126) 07/17/16 18:58 Total Creatine Kinase < 20 U/L (30-135) L 07/18/16 11:00 CK-MB (Mass) 0.46 ng/mL (0.0-3.38) 07/18/16 11:00 Troponin I 0.1920 ng/mL (0.00-0.120) H* 07/17/16 18:58 Troponin I, Quant 0.2190 ng/mL (0.00-0.120) H* 07/18/16 11:00 Total Protein 7.3 g/dL (6.3-8.3) 07/17/16 18:58 Albumin 3.3 g/dL (3.5-5.0) L D 07/17/16 18:58 Globulin 4.0 gm/dL (2.2-3.9) H 07/17/16 18:58 Albumin/Globulin Ratio 0.8 (1.0-2.1) L 07/17/16 18:58 Lipase 133 U/L (23-300) 07/17/16 18:58 - Hospital Course Hospital Course: Pt seen and examined today after HD, denies any chest pain, sob, palpitations, headache ,dizziness, N/V, c/o pain to the sacral area , Pt is for discharge No overnight events recorded on monitor Discharge Exam - Head Exam Head Exam: NORMAL INSPECTION - Eye Exam Eye Exam: EOMI, Normal appearance, PERRL Pupil Exam: NORMAL ACCOMODATION, PERRL - ENT Exam ENT Exam: Mucous Membranes Moist - Respiratory Exam Respiratory Exam: Clear to PA & Lateral, Wheezes, NORMAL BREATHING PATTERN - Cardiovascular Exam Cardiovascular Exam: REGULAR RHYTHM, +S1, +S2 - GI/Abdominal Exam GI & Abdominal Exam: Normal Bowel Sounds Discharge Plan - Discharge Medications Prescriptions: hydrALAZINE [Apresoline] 100 mg PO Q8 #90 tab Carvedilol [Coreg] 6.25 mg PO BID #60 tab Clonazepam [Klonopin] 0.5 mg PO HS PRN #10 tablet PRN Reason: Anxiety Multivitamin [Multi-Vitamin Daily] 1 each PO DAILY #30 tablet Famotidine [Pepcid] 20 mg PO DAILY #30 tab Clopidogrel [Plavix] 75 mg PO DAILY #30 tab Pravastatin Sodium 80 mg PO HS #30 tablet - Follow Up Plan Condition: GOOD Disposition: HOME/ ROUTINE Instructions: Myocardial Infarction (DC), Heart Failure (DC), Chest Pain (DC), Dialysis Diet (DC), Hypertension (DC), End Stage Kidney Disease (DC) Additional Instructions: f/u with Dr. Merchant office in 1 week Continue HD as scheduled Continue wound care - sacral stage 4 pressure ulcer, special collagan matrix dressing has been applied, then covered with calcium alginate silver, bordered foam dressing to be kept in place for 5 days, or change to medihoney, and cover with bordered dressing if dressing needs to be taken off. Resume [facility]NA service for wound care and HOme PT Referrals: Foster Go MD [Staff Provider] - Sergio Merchant MD [Staff Provider] -
== END 2016-07-20 17:31 | disposition home or self-care (01) | DRG 121 ==
LOC: C.ER 17:47 → OBSVTOIN 19:48 → C.9E 19:48 → C.5T 22:24 → C.6T 07-19 14:18
PROVIDERS: ADMIT Internal Medicine; ATTEND Internal Medicine
PROC: 5A1D00Z (ICD-10-PCS; principal; 2016-07-20)
DX: I21.4 Non-ST elevation (NSTEMI) myocardial infarction (principal); L89.152 Pressure ulcer of sacral region, stage 2; L89.154 Pressure ulcer of sacral region, stage 4; I13.2 Hypertensive heart and chronic kidney disease with heart failure and with stage 5 chronic kidney disease, or end stage renal disease; N18.6 End stage renal disease; E11.22 Type 2 diabetes mellitus with diabetic chronic kidney disease; F03.90 Unspecified dementia, unspecified severity, without behavioral disturbance, psychotic disturbance, mood disturbance, and anxiety; L03.317 Cellulitis of buttock; I50.9 Heart failure, unspecified; E11.65 Type 2 diabetes mellitus with hyperglycemia; Z99.2 Dependence on renal dialysis; Z79.4 Long term (current) use of insulin; Z95.1 Presence of aortocoronary bypass graft; K59.00 Constipation, unspecified; Z99.3 Dependence on wheelchair; H54.41 Blindness, right eye, normal vision left eye; I25.10 Atherosclerotic heart disease of native coronary artery without angina pectoris; K29.70 Gastritis, unspecified, without bleeding; Z74.01 Bed confinement status; I69.398 Other sequelae of cerebral infarction; D64.9 Anemia, unspecified

== ENCOUNTER 2016-09-14 13:23 | Inpatient (IN) | payer MEDICARE, MEDICAID ==
[2016-09-14 13:23] VITALS: BMI 26.0
[2016-09-14] MEDS ORDERED: Nitroglycerin 2% Ointment Foilpak UD TOP STA (14:21)
[2016-09-14] MEDS ORDERED: Nitroglycerin 2% Ointment Foilpak UD TOP ONE (14:47)
--- NOTE | 2016-09-14 15:10 | RAD ---
PROCEDURE: CHEST RADIOGRAPH, 1 VIEW HISTORY: Shortness of breath COMPARISON: 07/17/2016 FINDINGS: LUNGS: Right central venous catheter tip extending into the right atrium. Moderate to severe venous congestion with associated prominent bibasilar airspace opacities with loculated moderate right and small left pleural effusion. Additional somewhat masslike opacity projecting over the right lung base. Small calcified granuloma at the right lung apex. PLEURA: As above. CARDIOVASCULAR: Cardiomegaly. Status post median sternotomy and CABG. Axillary vascular calcifications bilaterally. Surgical clips in the left axilla. OSSEOUS STRUCTURES: Degenerative changes in the spine and shoulders. Focal sclerotic lesion in the proximal right humerus. VISUALIZED UPPER ABDOMEN: Normal. OTHER FINDINGS: None. IMPRESSION: Right central venous catheter tip extending into the right atrium. Moderate to severe venous congestion with associated prominent bibasilar airspace opacities with loculated moderate right and small left pleural effusion. Additional somewhat masslike opacity projecting over the right lung base. Small calcified granuloma at the right lung apex.
[2016-09-14 15:14] LABS: BASO # 0.1 K/uL (0.0-0.2); EOS # 0.1 K/uL (0.0-0.7); EOS % 1.4 % (0.0-4.0); HEMATOCRIT 31.8 % (34.0-47.0); LYMPH # 2.1 K/uL (1.0-4.3); LYMPH % 26.9 % (20.0-40.0); MEAN CELL VOLUME 93.8 fL (81.0-99.0); MEAN CORPUSCULAR HEMOGLOBIN 30.6 pg (27.0-31.0); MEAN CORPUSCULAR HGB CONC 32.6 g/dL (33.0-37.0); MONO # 0.6 K/uL (0.0-0.8); MONO % 8.3 % (0.0-10.0); WHITE BLOOD COUNT 7.8 K/uL (4.8-10.8)
--- NOTE | 2016-09-14 15:25 | C.PDOC ---
History Of Present Illness 70 year old patient, with a past medical history of diabetes, end stage renal disease, hypertension, and CHF, is brought to the emergency department by ambulance complaining of shortness of breath and weakness just prior to arrival. Patient was on her way to dialysis when her symptoms began. She is a Tuesday, , Tuesday dialysis patient. Patient admits to taking her medications this morning. Patient denies fever, chills, chest pain, nausea, vomiting, abdominal pain, or light headedness. Time Seen by Provider: 09/14/16 14:15 Chief Complaint (Nursing): Shortness Of Breath History Per: Patient History/Exam Limitations: no limitations Onset/Duration Of Symptoms: Mins (just prior to arrival) Current Symptoms Are (Timing): Still Present Current Respiratory Medications: See Home Med List Severity: Mild Pain Scale Rating Of: 3 Recent travel outside of the [place]: No Past Medical History Reviewed: Historical Data, Nursing Documentation, Vital Signs Vital Signs: Last Vital Signs Temp 97.8 F 09/14/16 20:18 Pulse 66 09/14/16 20:18 Resp 20 09/14/16 20:18 BP 161/63 H 09/14/16 20:18 Pulse Ox 97 09/14/16 20:18 - Medical History PMH: CHF (ECHO 2015 concentric LVH with EF 90%), Diabetes, HTN, End Stage Renal Disease, Chronic Kidney Disease Surgical History: CABG (2001) - [facility] Procedures APPLICATION OF SPLINT (09/15/13) COMPRESSION OF BACK USING PRESSURE DRESSING (03/20/16) COMPRESSION OF RIGHT UPPER LEG USING PRESSURE DRESSING (03/20/16) DRAINAGE OF BACK SKIN, EXTERNAL APPROACH (03/20/16) DRAINAGE OF BUTTOCK SKIN, EXTERNAL APPROACH (03/20/16) EXCISION OF BACK SKIN, EXTERNAL APPROACH (03/20/16) EXCISION OF BUTTOCK SKIN, EXTERNAL APPROACH (03/20/16) EXTRACTION OF BACK SKIN, EXTERNAL APPROACH (03/20/16) HEMODIALYSIS (08/11/14) INSERTION OF INFUSION DEV INTO SUP VENA CAVA, PERC APPROACH (05/09/16) INSERTION OF INFUSION DEVICE INTO R [facility], PERC APPROACH (10/21/15) PERFORMANCE OF URINARY FILTRATION, MULTIPLE (03/20/16) PERFORMANCE OF URINARY FILTRATION, SINGLE (07/17/16) REPOSITION RIGHT UPPER FEMUR WITH INT FIX, PERC APPROACH (02/23/16) TRANSFUSE NONAUT PLATELETS IN PERIPH VEIN, PERC (03/20/16) TRANSFUSE NONAUT RED BLOOD CELLS IN PERIPH VEIN, PERC (03/20/16) VENOUS CATHETERIZATION FOR RENAL DIALYSIS (01/05/13) Family History: States: Unknown Family Hx - Social History Hx Tobacco Use: No Hx Alcohol Use: No Hx Substance Use: No - Immunization History Hx Tetanus Toxoid Vaccination: Yes Hx Influenza Vaccination: Yes Hx Pneumococcal Vaccination: Yes Review Of Systems Except As Marked, All Systems Reviewed And Found Negative. Constitutional: Positive for: Weakness. Negative for: Fever, Chills Cardiovascular: Negative for: Chest Pain, Light Headedness Respiratory: Positive for: Shortness of Breath Gastrointestinal: Negative for: Nausea, Vomiting, Abdominal Pain Physical Exam - Physical Exam Appears: Non-toxic, No Acute Distress, Other (elderly) Skin: Warm, Dry Head: Atraumatic, Normacephalic Eye(s): bilateral: Normal Inspection, EOMI Oral Mucosa: Moist Neck: Normal ROM, Supple Chest: Symmetrical, Other (hemodialysis port to right clavicle) Cardiovascular: Rhythm Regular, No JVD Respiratory: Rales (mild at bilateral bases), No Rhonchi, No Wheezing Gastrointestinal/Abdominal: Soft, No Tenderness Back: Normal Inspection, No CVA Tenderness Extremity: Normal ROM, No Pedal Edema Neurological/Psych: Oriented x3 ED Course And Treatment - Laboratory Results Result Diagrams: 09/14/16 15:06 09/14/16 15:06 Lab Interpretation: Abnormal (+ mild elev trop) ECG: Interpreted By Ma ECG Rhythm: Sinus Rhythm, Sinus Tachycardia ECG Interpretation: No Acute Changes Rate From EC O2 Sat by Pulse Oximetry: 97 (Room air) Pulse Ox Interpretation: Normal - Radiology CXR: Interpreted by Me CXR Interpretation: Yes: Other (+CHF) Progress Note: Plan: -EKG. -Labs. -Chest x-ray. -Catapres, Nitro, Zofran. 14:[address] Merchant who agrees with the plan and will admit the patient. 15:[address] Quintero who is covering for Dr. Caldwell. He agrees with sending the patient for hemodialysis without labs due to poor prophylaxis. Procedure failed for left EJ. Reevaluation Time: 16:00 (remains asymptomatic) Reassessment Condition: Improved Medical Decision Making Medical Decision Making: NSTEMI, prob due to HTN strain Disposition Doctor Will See Patient In The: Hospital Counseled Patient/Family Regarding: Studies Performed, Diagnosis - Disposition Disposition: HOME/ ROUTINE Disposition Time: 16:00 Condition: GOOD - Clinical Impression Clinical Impression: ESRD (end stage renal disease) on dialysis, CHF exacerbation, Troponin I above reference range, NSTEMI (non-ST elevated myocardial infarction) - Scribe Statement The provider has reviewed the documentation as recorded by the Lizz Carranza Provider Attestation: All medical record entries made by the Vinayakibdinah were at my direction and personally dictated by me. I have reviewed the chart and agree that the record accurately reflects my personal performance of the history, physical exam, medical decision making, and the department course for this patient. I have also personally directed, reviewed, and agree with the discharge instructions and disposition.
[2016-09-14 15:26] LABS: CALCIUM 8.5 mg/dl (8.6-10.4); TOTAL PROTEIN 7.6 g/dL (6.3-8.3)
[2016-09-14 16:12] LABS: TROPONIN I 0.667 ng/mL (0.00-0.120)
[2016-09-15] MEDS: Nitroglycerin 2% Ointment Foilpak UD TOP PRN ×2 (06:41→12:11)
[2016-09-15] MEDS: Multiple Vitamins Tab PO SCH (10:13)
[2016-09-15] MEDS: Acetaminophen-Codeine 300/30 mg Tab PO PRN (10:13)
--- NOTE | 2016-09-15 10:51 | CARD ---
APPROVED REPORT EKG Measurement Heart [id number] <Conclusion> Normal sinus rhythm Right bundle branch block Abnormal ECG
--- NOTE | 2016-09-15 15:18 | CP.PCM.CON ---
History of Present Illness - History of Present Illness History of Present Illness: 70 year old patient, with a past medical history of diabetes, end stage renal disease, hypertension, and CHF, is brought to the emergency department by ambulance complaining of shortness of breath and weakness just prior to arrival. Patient was on her way to dialysis when her symptoms began. She is a Tuesday, , Tuesday dialysis patient. Patient admits to taking her medications this morning. Patient denies fever, chills, chest pain, nausea, vomiting, abdominal pain, or light headedness. PMH: ESRD DM 2 DIABETIC NEPHROPATHY HTN CMP SACRAL DECUBITII CONSULT DICTATED ARRANGED FOR EMERGENT DIALYSIS LAST PM FOR CHF- WILL CONTINUE TTS DIALYSIS Past Patient History - Past Medical History & Family History Past Medical History?: Yes - Past Social History Smoking Status: Never Smoked - CARDIAC Hx Congestive Heart Failure: Yes Hx Hypertension: Yes - PULMONARY Hx Respiratory Disorders: No - NEUROLOGICAL Hx Neurological Disorder: Yes Hx Dizziness: Yes - HEENT Hx HEENT Problems: Yes Other/Comment: right eye-blind;left eye-blurry - RENAL Hx Chronic Kidney Disease: Yes - ENDOCRINE/METABOLIC Hx Diabetes Mellitus Type 2: Yes - HEMATOLOGICAL/ONCOLOGICAL Hx Blood Disorders: No - INTEGUMENTARY Hx Dermatological Problems: No - MUSCULOSKELETAL/RHEUMATOLOGICAL Hx Falls: No - GASTROINTESTINAL Hx Gastrointestinal Disorders: No - GENITOURINARY/GYNECOLOGICAL Hx Genitourinary Disorders: No - PSYCHIATRIC Hx Substance Use: No - SURGICAL HISTORY Hx Coronary Artery Bypass Graft: Yes (2001) - ANESTHESIA Hx Anesthesia: Yes Hx Anesthesia Reactions: No Hx Malignant Hyperthermia: No Meds Allergies/Adverse Reactions: Allergies Allergy/AdvReac Type Severity Reaction Status Date / Time No Known Allergies Allergy Verified 09/14/16 13:37 - Medications Medications: Current Medications Acetaminophen/Codeine Phosphate (Tylenol/Codeine 300 Mg/30 Mg) 1 ea PO Q6 PRN PRN Reason: Pain, moderate (4-7) Last Admin: 09/15/16 10:13 Dose: 1 ea Aspirin (Aspirin Chewable) 81 mg PO DAILY [facility] Last Admin: 09/15/16 10:08 Dose: 81 mg Carvedilol (Coreg) 6.25 mg PO BID [facility] Last Admin: 09/15/16 10:08 Dose: 6.25 mg Clonazepam (Klonopin) 0.5 mg PO HS PRN PRN Reason: Anxiety Clopidogrel Bisulfate (Plavix) 75 mg PO DAILY [facility] Last Admin: 09/15/16 10:08 Dose: 75 mg Famotidine (Pepcid) 20 mg PO DAILY [facility] Last Admin: 09/15/16 10:08 Dose: 20 mg Heparin Sodium (Porcine) (Heparin) 5,000 units SC Q8 [facility] Last Admin: 09/15/16 13:38 Dose: 5,000 units Hydralazine HCl (Apresoline) 100 mg PO Q8 [facility] Last Admin: 09/15/16 13:38 Dose: 100 mg Insulin Aspart (Novolog) 0 unit SC ACHS [facility] PRN Reason: Protocol Multivitamins (Hexavitamin) 1 tab PO DAILY [facility] Last Admin: 09/15/16 10:13 Dose: 1 tab Nitroglycerin (Nitro-Bid 2% Oint) 1 ea TOP Q6 PRN PRN Reason: Diastolic blood pressure Last Admin: 09/15/16 12:11 Dose: 1 ea Rosuvastatin Calcium (Crestor) 10 mg PO HS [facility] Last Admin: 09/14/16 22:37 Dose: 10 mg Results - Vital Signs Recent Vital Signs: Last Vital Signs Temp 98.5 F 09/15/16 07:25 Pulse 73 09/15/16 11:43 Resp 18 09/15/16 07:25 BP 148/68 09/15/16 13:06 Pulse Ox 95 09/15/16 11:43 - Labs Result Diagrams: 09/14/16 15:06 09/14/16 15:06 Labs: Laboratory Results - last 24 hr 09/14/16 09/14/16 09/14/16 17:40 21:58 23:13 POC Glucose (mg/dL) 146 H 171 H Total Creatine Kinase 32 CK-MB (Mass) 0.86 Troponin I, Quant 0.8840 H* 09/15/16 09/15/16 09/15/16 06:25 06:26 11:45 POC Glucose (mg/dL) 280 H 313 H Total Creatine Kinase 24 L CK-MB (Mass) 0.49 Troponin I, Quant 0.6170 H*
--- NOTE | 2016-09-15 16:58 | CP.PCM.HP ---
History of Present Illness - History of Present Illness History of Present Illness: Patienceif complain: shortness of breath 70 year old patient, with a past medical history of diabetes, end stage renal disease, hypertension, and CHF, is brought to the emergency department by ambulance complaining of shortness of breath and weakness just prior to arrival. Patient was on her way to dialysis when her symptoms began. She is a Tuesday, , Tuesday dialysis patient. Patient admits to taking her medications this morning. Patient denies fever, chills, chest pain, nausea, vomiting, abdominal pain, or light headedness. Present on Admission - Present on Admission Any Indicators Present on Admission: No Review of Systems - Review of Systems Systems not reviewed;Unavailable: Unstable Vital Signs - Constitutional Constitutional: Fatigue, Lethargy, Malaise - EENT Eyes: absent: As Per HPI, Blind Spots, Blurred Vision, Change in Vision, Decreased Night Vision, Diplopia, Discharge, Dry Eye, Exophthalmos, Floaters, Irritation, Itchy Eyes, Loss of Peripheral Vision, Pain, Photophobia, Requires Corrective Lenses, Sees Flashes, Spots in Vision, Tunnel Vision, Other Visual Disturbances, Loss of Vision, Other - Cardiovascular Cardiovascular: Chest Pain, Chest Pain with Activity, Dyspnea, Dyspnea on Exertion - Respiratory Respiratory: Dyspnea, Dyspnea on Exertion, Chest Congestion. absent: As Per HPI , Cough, Hemoptysis, Wheezing, Snoring, Stridor, Pain on Inspiration, Excessive Mucous Production, Change in Mucous Color, Pain with Coughing, Other - Gastrointestinal Gastrointestinal: absent: As Per HPI, Abdominal Pain, Belching, Bloating, Change in Bowel Habits, Change in Stool Character, Coffee Ground Emesis, Constipation, Cramping, Diarrhea, Dyspepsia, Dysphagia, Early Satiety, Excessive Flatus, Fecal Incontinence, Heartburn, Hematemesis, Hematochezia, Loose Stools, Melena, Nausea, Odynophagia, Temesmus, Vomiting, Other - Genitourinary Genitourinary: absent: As Per HPI, Change in Urinary Stream, Difficulty Urinating, Dysuria, Flank Pain, Hematuria, Pyuria, Nocturia, Urinary Incontinence, Urinary Frequency, Urinary Hesitance, Urinary Urgency, Voiding Freq/Small Amts, Freq UTI, Hx Renal/Bladder Calculi, Hx /Renal Surgery, Bladder Distension, Other Past Patient History - Past Medical History & Family History Past Medical History?: Yes - Past Social History Smoking Status: Never Smoked - CARDIAC Hx Congestive Heart Failure: Yes Hx Hypertension: Yes - PULMONARY Hx Respiratory Disorders: No - NEUROLOGICAL Hx Neurological Disorder: Yes Hx Dizziness: Yes - HEENT Hx HEENT Problems: Yes Other/Comment: right eye-blind;left eye-blurry - RENAL Hx Chronic Kidney Disease: Yes - ENDOCRINE/METABOLIC Hx Diabetes Mellitus Type 2: Yes - HEMATOLOGICAL/ONCOLOGICAL Hx Blood Disorders: No - INTEGUMENTARY Hx Dermatological Problems: No - MUSCULOSKELETAL/RHEUMATOLOGICAL Hx Falls: No - GASTROINTESTINAL Hx Gastrointestinal Disorders: No - GENITOURINARY/GYNECOLOGICAL Hx Genitourinary Disorders: No - PSYCHIATRIC Hx Substance Use: No - SURGICAL HISTORY Hx Coronary Artery Bypass Graft: Yes (2001) - ANESTHESIA Hx Anesthesia: Yes Hx Anesthesia Reactions: No Hx Malignant Hyperthermia: No Meds Home Medications: Home Medication List Medication Instructions Recorded Confirmed Type Carvedilol [Coreg] 12.5 mg PO BID #60 tab 09/16/16 Rx Clonazepam [Klonopin] 0.5 mg PO HS PRN #15 tablet 09/16/16 Rx oxyCODONE/Acetaminophen [Percocet 1 ea PO Q8 PRN #20 tab 09/16/16 Rx 5/325 mg Tab] Allergies/Adverse Reactions: Allergies Allergy/AdvReac Type Severity Reaction Status Date / Time No Known Allergies Allergy Verified 10/07/16 20:21 Physical Exam - Constitutional Appears: No Acute Distress - Head Exam Head Exam: ATRAUMATIC, NORMAL INSPECTION, NORMOCEPHALIC - Eye Exam Eye Exam: EOMI, Normal appearance, PERRL Pupil Exam: NORMAL ACCOMODATION, PERRL - Respiratory Exam Respiratory Exam: Decreased Breath Sounds, Rhonchi - Cardiovascular Exam Cardiovascular Exam: REGULAR RHYTHM - GI/Abdominal Exam GI & Abdominal Exam: Normal Bowel Sounds, Soft. absent: Tenderness - Skin Skin Exam: Dry, Intact, Normal Color, Warm Additional comments: right clavicle port for HD Results - Vital Signs Recent Vital Signs: Last Vital Signs Temp 98.4 F 09/15/16 15:00 Pulse 69 09/15/16 15:00 Resp 20 09/15/16 15:00 BP 184/75 H 09/15/16 15:00 Pulse Ox 99 09/15/16 15:00 - Labs Result Diagrams: 09/16/16 07:42 09/16/16 07:42 Labs: Laboratory Results - last 24 hr 09/14/16 09/14/16 09/14/16 17:40 21:58 23:13 POC Glucose (mg/dL) 146 H 171 H Total Creatine Kinase 32 CK-MB (Mass) 0.86 Troponin I, Quant 0.8840 H* 09/15/16 09/15/16 09/15/16 06:25 06:26 11:45 POC Glucose (mg/dL) 280 H 313 H Total Creatine Kinase 24 L CK-MB (Mass) 0.49 Troponin I, Quant 0.6170 H* 09/15/16 16:42 POC Glucose (mg/dL) 224 H Total Creatine Kinase CK-MB (Mass) Troponin I, Quant Assessment & Plan (1) CHF exacerbation Status: Acute (2) ESRD (end stage renal disease) on dialysis Status: Acute (3) Anemia Status: Acute (4) Chest pain Status: Acute
--- NOTE | 2016-09-15 16:59 | CP.PCM.PN ---
Subjective - Date & Time of Evaluation Date of Evaluation: 09/15/16 Time of Evaluation: 10:16 - Subjective Subjective: Pt seen & evaluated s/p HD Patient denies fever, chills, chest pain, nausea, vomiting, abdominal pain, or light headedness. Objective - Vital Signs/Intake and Output Vital Signs (last 24 hours): Temp Pulse Resp BP Pulse Ox 98.4 F 69 20 184/75 H 99 09/15/16 15:00 09/15/16 15:00 09/15/16 15:00 09/15/16 15:00 09/15/16 15:00 Intake and Output: 09/15/16 09/15/16 06:59 18:59 Intake Total 100 Balance 100 - Medications Medications: Current Medications Acetaminophen/Codeine Phosphate (Tylenol/Codeine 300 Mg/30 Mg) 1 ea PO Q6 PRN PRN Reason: Pain, moderate (4-7) Last Admin: 09/15/16 10:13 Dose: 1 ea Aspirin (Aspirin Chewable) 81 mg PO DAILY [facility] Last Admin: 09/15/16 10:08 Dose: 81 mg Carvedilol (Coreg) 6.25 mg PO BID [facility] Last Admin: 09/15/16 10:08 Dose: 6.25 mg Clonazepam (Klonopin) 0.5 mg PO HS PRN PRN Reason: Anxiety Clopidogrel Bisulfate (Plavix) 75 mg PO DAILY [facility] Last Admin: 09/15/16 10:08 Dose: 75 mg Famotidine (Pepcid) 20 mg PO DAILY [facility] Last Admin: 09/15/16 10:08 Dose: 20 mg Heparin Sodium (Porcine) (Heparin) 5,000 units SC Q8 [facility] Last Admin: 09/15/16 13:38 Dose: 5,000 units Hydralazine HCl (Apresoline) 100 mg PO Q8 [facility] Last Admin: 09/15/16 13:38 Dose: 100 mg Insulin Aspart (Novolog) 0 unit SC ACHS [facility] PRN Reason: Protocol Multivitamins (Hexavitamin) 1 tab PO DAILY [facility] Last Admin: 09/15/16 10:13 Dose: 1 tab Nitroglycerin (Nitro-Bid 2% Oint) 1 ea TOP Q6 PRN PRN Reason: Diastolic blood pressure Last Admin: 09/15/16 12:11 Dose: 1 ea Rosuvastatin Calcium (Crestor) 10 mg PO [facility] Last Admin: 09/14/16 22:37 Dose: 10 mg - Constitutional Appears: No Acute Distress - Head Exam Head Exam: ATRAUMATIC, NORMAL INSPECTION, NORMOCEPHALIC - Eye Exam Eye Exam: EOMI, Normal appearance, PERRL Pupil Exam: NORMAL ACCOMODATION, PERRL - Respiratory Exam Respiratory Exam: Clear to Ausculation Bilateral, NORMAL BREATHING PATTERN - Cardiovascular Exam Cardiovascular Exam: REGULAR RHYTHM, +S1, +S2. absent: Murmur - GI/Abdominal Exam GI & Abdominal Exam: Soft, Normal Bowel Sounds. absent: Tenderness Assessment and Plan (1) CHF exacerbation Status: Acute (2) ESRD (end stage renal disease) on dialysis Status: Acute (3) Anemia Status: Acute (4) Chest pain Status: Acute
[2016-09-15] MEDS: (Novolog) Insulin Aspart, Recombinant 100 u/ml 10 ml vial SC SCH ×2 (17:00→22:20)
--- NOTE | 2016-09-15 19:15 | CON ---
DATE: 09/15/2016 REASON FOR CONSULTATION: Shortness of breath and coronary artery disease. The patient is a 70-year-old female who has a history of coronary artery disease, status pos t coronary artery bypass surgery in 2001 in a [facility]. The patient has end-stage renal dis ease on hemodialysis. She has also chronic sacral decubitus that required multiple debridements in t he past and currently has healed according to the patient's daughter, who takes care of her mom at [facility]. The patient also has a history of right hip fracture in 02/2015. The patient presented because of shortness breath. There was no history of missing dialysis and patient has been compliant with he r medications and fluid intake, according to the daughter. The patient denies any chest pain, denies any fever or chills, or productive cough. MEDICATIONS: Hydralazine 100 mg q. 8 hours, aspirin 81 mg once a day, Coreg 6.25 mg twice a day, Cre stor 10 mg once a day, heparin 5000 units q. 8 hours, Pepcid 20 mg daily, Plavix 75 mg once a day. REVIEW OF SYSTEMS: No fever or chills. No productive cough. No retrosternal chest pain. PAST MEDICAL HISTORY: End-stage renal disease on hemodialysis, coronary artery disease status post c oronary artery bypass surgery in 2001, hip fracture in 2014, hypertension, diabetes mellitus. PHYSICAL EXAMINATION: GENERAL: The patient is an elderly female who does not appear to be in acute distress. VITAL SIGNS: Blood pressure 148/68, heart rate 73, temperature 98.5, respirations 18. HEENT: Pale conjunctivae. CHEST: Diminished breath sounds over the bases. HEART: S1, S2 regular. ABDOMEN: Soft. EXTREMITIES: Significant muscle wasting. LABORATORIES: Troponin 0.88 and 0.617. SMA-7 yesterday: Sodium 138, potassium 5, chloride 95, CO2 27, glucose 204, BUN 58, creatinine 4.7. ProBNP is 117,000. Hemoglobin and hematocrit 10.4 and 31.8 , white count and platelet count are within normal limits. EKG revealed sinus rhythm at a rate of 66, right bundle branch block. Chest x-ray revealed cardiomegaly, right lower lobe infiltrate and effusion and possible small left l vinay effusion. ASSESSMENT: 1. Exacerbation of congestive heart failure. 2. Consider right lower lobe pneumonia and bilateral pleural effusion. 3. Consider non-ST elevation myocardial infarction. 4. End-stage renal disease, on hemodialysis. 5. Coronary artery disease, status post coronary artery bypass surgery. RECOMMENDATIONS: Continue hydralazine 100 mg q. 8 hours, aspirin 81 mg daily, Coreg 6.25 mg twice a day, Crestor at 10 mg once a day, Plavix at 75 mg once a day, subcutaneous heparin 5000 units q. 8 ho urs. Obtain an echocardiogram. A conservative medical approach is justified because of the multiple medical problems, unless the patient develops persistent congestive heart failure, sustained ventric ular tachycardia, hypotension or persistent chest pain. The case was discussed with the patient's elham osman at the bedside. Foster Go MD cc: [id number] TT: 09/15/2016 19:14:10 Confirmation # [id number] Dictation # [id number]
--- NOTE | 2016-09-15 20:18 | CON ---
DATE: 09/15/2016 The patient is a 70-year-old woman who has been on maintenance hemodialysis for many years. She has history of diabetic nephropathy, diabetes mellitus type 2, hypertension, cardiomyopathy, ___ __. She also had sacral decubiti, which was debrided several times several months ago. She came to the Emergency Department last p.m. with severe shortness of breath. Chest x-ray showed congestive he art failure and the patient was in distress. She had emergent dialysis and she was much stable after dialysis and removed approximately . PAST SURGICAL HISTORY: She had a left arm AV graft, which was thrombosed, PermCath placement. She h ad sacral decubiti, which was debrided several times. MEDICATIONS: Include hydralazine, aspirin, clonidine, carvedilol, Crestor, multivitamin, Pepcid, Kelly vix. She also has a history of dyslipidemia. SOCIAL HISTORY: Negative for smoking, alcohol abuse or illicit drug use. FAMILY HISTORY: Noncontributory. REVIEW OF SYSTEMS: Increased shortness of breath. The patient has dementia and unable to obtain mor e review of systems. PHYSICAL EXAMINATION: GENERAL: She is a well-developed woman who is post-dialysis, now in no acute distress. VITAL SIGNS: Blood pressure 148/68, pulse 73, pulse ox % on room air. Last temperature was 98. 5. HEENT: Anicteric. Mouth was clear. NECK: No JVD. LUNGS: [place] were clear anteriorly. HEART: Regular rhythm, no murmur. ABDOMEN: Soft, benign. No mass or organomegaly. EXTREMITIES: No peripheral edema. She had a right IJ PermCath in place. LABORATORY DATA: Hemoglobin of 10.4, white count 7.8. Sodium 138, potassium 5.0, creatinine 4.7. T he troponins are mildly elevated consistent with chronic kidney disease. The proBNP is very elevated at 117,000. Chest x-ray showed congestive heart failure. IMPRESSION: Congestive heart failure, end-stage renal disease, known cardiomyopathy, diabetes mellit us type 2, diabetic nephropathy, hypertension history, and previously with sacral decubiti which need ed many debridements. PLAN: For immediate dialysis. We will continue dialysis in the a.m. as well and keep her blood pres sure well controlled as it is at present. We will follow up. Yoni Caldwell MD cc: [id number] TT: 09/15/2016 20:17:29 Confirmation # [id number] Dictation # [id number] mn
[2016-09-16] MEDS: Nitroglycerin 2% Ointment Foilpak UD TOP PRN (00:17)
[2016-09-16] MEDS: (Novolog) Insulin Aspart, Recombinant 100 u/ml 10 ml vial SC SCH ×3 (07:51→16:21)
[2016-09-16 08:08] LABS: HEMATOCRIT 27.4 % (34.0-47.0); MEAN CELL VOLUME 94.6 fL (81.0-99.0); MEAN CORPUSCULAR HEMOGLOBIN 30.5 pg (27.0-31.0); MEAN CORPUSCULAR HGB CONC 32.3 g/dL (33.0-37.0); MEAN PLATELET VOLUME 13.1 fL (7.2-11.7); RED CELL DISTRIBUTION WIDTH 13.7 % (11.5-14.5); WHITE BLOOD COUNT 4.9 K/uL (4.8-10.8)
[2016-09-16 08:21] LABS: POTASSIUM 3.7 mmol/L (3.6-5.2)
[2016-09-16 08:23] LABS: BILIRUBIN,TOTAL 0.6 mg/dL (0.2-1.3); TOTAL PROTEIN 6.3 g/dL (6.3-8.3)
[2016-09-16 08:24] LABS: CALCIUM 8.1 mg/dl (8.6-10.4)
[2016-09-16] MEDS ORDERED: Epoetin Alfa 10,000 unit/ml Dialysis IV SCH (11:00)
--- NOTE | 2016-09-16 11:01 | CP.PCM.PN ---
Subjective - Date & Time of Evaluation Date of Evaluation: 09/16/16 Time of Evaluation: 10:58 - Subjective Subjective: Alert; on dialysis now BP uncontrolled- to give clonidine po at dialysis To UF 2800ml with HD Objective - Vital Signs/Intake and Output Vital Signs (last 24 hours): Temp Pulse Resp BP Pulse Ox 98.1 F 74 169 H 223/75 H 100 09/16/16 09:12 09/16/16 09:12 09/16/16 09:12 09/16/16 10:43 09/16/16 09:12 Intake and Output: 09/16/16 09/16/16 06:59 18:59 Intake Total 340 Balance 340 - Medications Medications: Current Medications Acetaminophen/Codeine Phosphate (Tylenol/Codeine 300 Mg/30 Mg) 1 ea PO Q6 PRN PRN Reason: Pain, moderate (4-7) Last Admin: 09/15/16 10:13 Dose: 1 ea Aspirin (Aspirin Chewable) 81 mg PO DAILY [facility] Last Admin: 09/15/16 10:08 Dose: 81 mg Clonazepam (Klonopin) 0.5 mg PO HS PRN PRN Reason: Anxiety Clopidogrel Bisulfate (Plavix) 75 mg PO DAILY [facility] Last Admin: 09/15/16 10:08 Dose: 75 mg Epoetin Sarabjit (Procrit) 10,000 unit IV TTS [facility] Famotidine (Pepcid) 20 mg PO DAILY [facility] Last Admin: 09/15/16 10:08 Dose: 20 mg Heparin Sodium (Porcine) (Heparin) 5,000 units SC Q8 [facility] Last Admin: 09/16/16 06:59 Dose: 5,000 units Hydralazine HCl (Apresoline) 100 mg PO Q8 [facility] Last Admin: 09/16/16 06:59 Dose: 100 mg Insulin Aspart (Novolog) 0 unit SC ACHS [facility] PRN Reason: Protocol Last Admin: 09/16/16 07:51 Dose: Not Given Multivitamins (Hexavitamin) 1 tab PO DAILY [facility] Last Admin: 09/15/16 10:13 Dose: 1 tab Nitroglycerin (Nitro-Bid 2% Oint) 1 ea TOP Q6 PRN PRN Reason: Diastolic blood pressure Last Admin: 09/16/16 00:17 Dose: 1 ea Rosuvastatin Calcium (Crestor) 10 mg PO HS [facility] Last Admin: 09/15/16 22:14 Dose: 10 mg - Labs Labs: 09/16/16 07:42 09/16/16 07:42 - Constitutional Appears: No Acute Distress, Chronically Ill - Head Exam Head Exam: ATRAUMATIC, NORMAL INSPECTION - Eye Exam Eye Exam: EOMI, Normal appearance - Neck Exam Neck Exam: Normal Inspection. absent: Tenderness - Respiratory Exam Respiratory Exam: Clear to Ausculation Bilateral, NORMAL BREATHING PATTERN - Cardiovascular Exam Cardiovascular Exam: REGULAR RHYTHM, +S1 - GI/Abdominal Exam GI & Abdominal Exam: Soft. absent: Tenderness - Extremities Exam Extremities Exam: Normal Inspection. absent: Tenderness - Neurological Exam Neurological Exam: Awake, Motor Sensory Deficit - Psychiatric Exam Psychiatric exam: Flat Affect, Normal Mood - Skin Skin Exam: Dry, Warm Assessment and Plan (1) Hypertensive chronic kidney disease with stage 5 chronic kidney disease or end stage renal disease Status: Acute (2) CHF exacerbation Status: Acute (3) Chronic congestive heart failure Status: Chronic (4) ESRD (end stage renal disease) Status: Chronic - Assessment and Plan (Free Text) Plan: Dialysis now with adequate UF Increase carvedilol dose
[2016-09-16] MEDS: Multiple Vitamins Tab PO SCH (13:01)
[2016-09-16 16:23] VITALS: BP 112/50; PULSE 67; RESP 20; TEMP 98.3; O2SAT 96
[2016-09-16] MEDS: Acetaminophen-Codeine 300/30 mg Tab PO PRN (16:25)
--- NOTE | 2016-09-16 16:46 | PN ---
DATE: 09/16/2016 SUBJECTIVE: The patient denies any chest pain or shortness of breath. PHYSICAL EXAMINATION: VITAL SIGNS: Blood pressure 129/78, heart rate 67, temperature 97.7, respirations 17. HEENT: Pale conjunctivae. CHEST: Diminished breath sounds over the bases. HEART: S1, S2 regular. EXTREMITIES: No pedal edema. LABORATORIES: Hemoglobin and hematocrit 8.9 and 27.4, white count 4.9, platelet count slightly below normal at 125,000. Today's BUN and creatinine are 33 and 4.2, glucose is 110. ASSESSMENT: 1. Status post volume overload. 2. Borderline troponin elevation. 3. Coronary artery disease status post coronary artery bypass surgery in 2001. 4. End-stage renal disease on hemodialysis. RECOMMENDATIONS: Continue hydralazine 100 mg q.8 hours, Coreg at 12.5 mg ____ a day, aspirin 81 mg o nce a day, Crestor 10 mg once a day, subcutaneous heparin 5000 units q.8 hours, ____ 75 mg once a day . Case was discussed with the patient's daughter at the bedside and with the LOG DECKMAN. Awaiting venous D oppler of the lower extremity ordered yesterday. Foster Go MD cc: [id number] TT: 09/16/2016 16:45:53 Confirmation # [id number] Dictation # [id number] sn
--- NOTE | 2016-09-16 17:14 | CP.PCM.PN ---
Subjective - Date & Time of Evaluation Date of Evaluation: 09/16/16 Time of Evaluation: 13:00 - Subjective Subjective: Pt seen and examined today post HD , comfortable , denies any chest pin, sob, dizziness No overnight events recorded in monitor bp stable Objective - Vital Signs/Intake and Output Vital Signs (last 24 hours): Temp Pulse Resp BP Pulse Ox 98.3 F 67 20 112/50 L 96 09/16/16 16:21 09/16/16 16:21 09/16/16 16:21 09/16/16 16:21 09/16/16 16:21 Intake and Output: 09/16/16 09/16/16 06:59 18:59 Intake Total 340 Balance 340 - Medications Medications: Current Medications Acetaminophen/Codeine Phosphate (Tylenol/Codeine 300 Mg/30 Mg) 1 ea PO Q6 PRN PRN Reason: Pain, moderate (4-7) Last Admin: 09/16/16 16:25 Dose: 1 ea Aspirin (Aspirin Chewable) 81 mg PO DAILY [facility] Last Admin: 09/16/16 13:02 Dose: 81 mg Carvedilol (Coreg) 12.5 mg PO BID [facility] Clonazepam (Klonopin) 0.5 mg PO HS PRN PRN Reason: Anxiety Clopidogrel Bisulfate (Plavix) 75 mg PO DAILY [facility] Last Admin: 09/16/16 13:01 Dose: 75 mg Epoetin Sarabjit (Procrit) 10,000 unit IV TTS [facility] Last Admin: 09/16/16 11:06 Dose: 10,000 unit Famotidine (Pepcid) 20 mg PO DAILY [facility] Last Admin: 09/16/16 13:01 Dose: 20 mg Heparin Sodium (Porcine) (Heparin) 5,000 units SC Q8 [facility] Last Admin: 09/16/16 13:01 Dose: 5,000 units Hydralazine HCl (Apresoline) 100 mg PO Q8 [facility] Last Admin: 09/16/16 13:54 Dose: 100 mg Insulin Aspart (Novolog) 0 unit SC ACHS [facility] PRN Reason: Protocol Last Admin: 09/16/16 16:21 Dose: 6 unit Multivitamins (Hexavitamin) 1 tab PO DAILY [facility] Last Admin: 09/16/16 13:01 Dose: 1 tab Nitroglycerin (Nitro-Bid 2% Oint) 1 ea TOP Q6 PRN PRN Reason: Diastolic blood pressure Last Admin: 09/16/16 00:17 Dose: 1 ea Rosuvastatin Calcium (Crestor) 10 mg PO HS [facility] Last Admin: 09/15/16 22:14 Dose: 10 mg - Labs Labs: 09/16/16 07:42 09/16/16 07:42 Assessment and Plan - Assessment and Plan (Free Text) Assessment: A/P 70 yr old female admitted for SOB/ NSTEMI/ fluid overload /CHF troponin x 3 - midly elevated , consulted, recommends medical therapy secondary to multiple comorbiditeis bp - stable seen by Dr. Go , cleared fro discharge home today D/W Dr. Merchant, stable for discharge home today and f/u with Dr. Merchant office in 1 week and continue HD as scheduled Discharge plan discussed with patient , who understands an d agrees with plan
--- NOTE | 2016-09-16 17:16 | PCM.HF ---
Heart Failure Core Measure - Heart Failure Ejection Fraction: 40 % or Greater CURRY Inhibitor Prescribed: No Contraindication/Reason for not providing: ESRD Beta-Promise Prescribed: Carvedilol Angiotensin II Receptor Promise Prescribed: No Contraindication/Reason for not providing: ESRD AnticoagulationTherapy for Atrial Fibrillation/Atrialflutter: No Contraindication/Reason for not providing: NO HX OF AFIB Aldosterone Antagonist Prescribed: No Contraindication/Reason for not providing: ESRD/EF>45 Hydralazine Nitrate Prescribed: Yes Implantable Cardioverter Defibrillator Therapy: No Contraindication/Reason for not providing: EF>45 Cardiac Resynchronization Therapy Prescribed: No Contraindication/Reason for not providing: EF>45 - Follow up Will be discharged to: Home Follow Up Date (must be within 7 days from discharge): 09/21/16 Follow Up Time: 09:00
--- NOTE | 2016-09-16 22:34 | CP.PCM.DIS ---
Provider - Provider Date of Admission: 09/14/16 15:07 Attending physician: Sergio Merchant MD Time Spent in preparation of Discharge (in minutes): 30 Diagnosis - Discharge Diagnosis (1) CHF exacerbation Status: Acute (2) ESRD (end stage renal disease) on dialysis Status: Acute (3) Anemia Status: Acute (4) Chest pain Status: Acute Hospital Course - Lab Results Lab Results: Most Recent Lab Values WBC 4.9 K/uL (4.8-10.8) 09/16/16 07:42 RBC 2.90 Mil/uL (3.80-5.20) L 09/16/16 07:42 Hgb 8.9 g/dL (11.0-16.0) L 09/16/16 07:42 Hct 27.4 % (34.0-47.0) L 09/16/16 07:42 MCV 94.6 fL (81.0-99.0) 09/16/16 07:42 MCH 30.5 pg (27.0-31.0) 09/16/16 07:42 MCHC 32.3 g/dL (33.0-37.0) L 09/16/16 07:42 RDW 13.7 % (11.5-14.5) 09/16/16 07:42 Plt Count 125 K/uL (130-400) L D 09/16/16 07:42 MPV 13.1 fL (7.2-11.7) H 09/16/16 07:42 Neut % (Auto) 62.4 % (50.0-75.0) 09/14/16 15:06 Lymph % (Auto) 26.9 % (20.0-40.0) 09/14/16 15:06 [place] % (Auto) 8.3 % (0.0-10.0) 09/14/16 15:06 Eos % (Auto) 1.4 % (0.0-4.0) 09/14/16 15:06 Baso % (Auto) 1.0 % (0.0-2.0) 09/14/16 15:06 Neut # 4.9 K/uL (1.8-7.0) 09/14/16 15:06 Lymph # 2.1 K/uL (1.0-4.3) 09/14/16 15:06 [place] # 0.6 K/uL (0.0-0.8) 09/14/16 15:06 Eos # 0.1 K/uL (0.0-0.7) 09/14/16 15:06 Baso # 0.1 K/uL (0.0-0.2) 09/14/16 15:06 Differential Comment 09/16/16 07:42 Sodium 141 mmol/L (132-148) 09/16/16 07:42 Potassium 3.7 mmol/L (3.6-5.2) 09/16/16 07:42 Chloride 99 mmol/L (98-107) 09/16/16 07:42 Carbon Dioxide 30 mmol/L (22-30) 09/16/16 07:42 Anion Gap 16 (10-20) 09/16/16 07:42 BUN 33 mg/dL (7-17) H 09/16/16 07:42 Creatinine 4.2 MG/DL (0.7-1.2) H 09/16/16 07:42 Est GFR ( Amer) 13 09/16/16 07:42 Est GFR (Non-Af Amer) 10 09/16/16 07:42 POC Glucose (mg/dL) 301 mg/dL (65-110) H 09/16/16 16:12 Random Glucose 110 mg/dL (65-105) H 09/16/16 07:42 Calcium 8.1 mg/dl (8.6-10.4) L 09/16/16 07:42 Phosphorus 4.0 mg/dL (2.5-4.5) 09/16/16 07:42 Total Bilirubin 0.6 mg/dL (0.2-1.3) 09/16/16 07:42 AST 31 U/L (14-36) 09/16/16 07:42 ALT 29 U/L (9-52) 09/16/16 07:42 Alkaline Phosphatase 71 U/L (38-126) 09/16/16 07:42 Total Creatine Kinase 24 U/L (30-135) L 09/15/16 06:25 CK-MB (Mass) 0.49 ng/mL (0.0-3.38) 09/15/16 06:25 Troponin I 0.6670 ng/mL (0.00-0.120) H* 09/14/16 15:06 Troponin I, Quant 0.6170 ng/mL (0.00-0.120) H* 09/15/16 06:25 NT-Pro-B Natriuret Pep 024331.0 pg/mL (0-900) H 09/14/16 15:06 Total Protein 6.3 g/dL (6.3-8.3) 09/16/16 07:42 Albumin 3.2 g/dL (3.5-5.0) L 09/16/16 07:42 Globulin 3.2 gm/dL (2.2-3.9) 09/16/16 07:42 Albumin/Globulin Ratio 1.0 (1.0-2.1) 09/16/16 07:42 - Hospital Course Hospital Course: Pt seen and examined today post HD , comfortable , denies any chest pin, sob, dizziness No overnight events recorded in monitor bp stable Pt is for discharge today Discharge Exam - Head Exam Head Exam: ATRAUMATIC, NORMAL INSPECTION - Eye Exam Eye Exam: EOMI, Normal appearance, PERRL Pupil Exam: NORMAL ACCOMODATION, PERRL - Cardiovascular Exam Cardiovascular Exam: REGULAR RHYTHM, +S1, +S2 - GI/Abdominal Exam GI & Abdominal Exam: Normal Bowel Sounds Discharge Plan - Discharge Medications Prescriptions: Carvedilol [Coreg] 12.5 mg PO BID #60 tab Clonazepam [Klonopin] 0.5 mg PO HS PRN #15 tablet PRN Reason: Anxiety oxyCODONE/Acetaminophen [Percocet 5/325 mg Tab] 1 ea PO Q8 PRN #20 tab PRN Reason: Pain, Severe (8-10) - Follow Up Plan Condition: GOOD Disposition: HOME/ ROUTINE Instructions: Oxycodone/Acetaminophen (By mouth), Clonazepam (By mouth), Carvedilol (By mouth), Heart Failure (DC), Dialysis Diet (DC), Hypertension (DC) , End Stage Kidney Disease (DC) Additional Instructions: Continue medication as per Med. Rec Continue HD as scheduled Referrals: Sergio Merchant MD [Staff Provider] -
== END 2016-09-16 17:35 | disposition home or self-care (01) | DRG 280 ==
LOC: C.ER 13:23 → C.9E 15:07 → C.6T 17:24
PROVIDERS: ADMIT Internal Medicine; ATTEND Internal Medicine
PROC: 5A1D00Z (ICD-10-PCS; 2016-09-14)
PROC: 02HV33Z Insertion of Infusion Device into Superior Vena Cava, Percutaneous Approach (ICD-10-PCS; principal; 2016-09-15)
DX: I13.2 Hypertensive heart and chronic kidney disease with heart failure and with stage 5 chronic kidney disease, or end stage renal disease (principal); I21.4 Non-ST elevation (NSTEMI) myocardial infarction; J18.9 Pneumonia, unspecified organism; L89.159 Pressure ulcer of sacral region, unspecified stage; N18.6 End stage renal disease; I42.9 Cardiomyopathy, unspecified; I50.9 Heart failure, unspecified; E11.21 Type 2 diabetes mellitus with diabetic nephropathy; E11.22 Type 2 diabetes mellitus with diabetic chronic kidney disease; Z99.2 Dependence on renal dialysis; Z95.1 Presence of aortocoronary bypass graft; H54.11 Blindness, right eye, low vision left eye; D64.9 Anemia, unspecified

== ENCOUNTER 2016-10-07 17:51 | Observation (INO) | payer MEDICARE, MEDICAID ==
[2016-10-07 17:51] VITALS: BMI 26.0
[2016-10-07 18:38] LABS: BASO % 0.4 % (0.0-2.0); EOS # 0.1 K/uL (0.0-0.7); EOS % 1.1 % (0.0-4.0); HEMATOCRIT 31.4 % (34.0-47.0); LYMPH # 1.4 K/uL (1.0-4.3); LYMPH % 23.5 % (20.0-40.0); MEAN CELL VOLUME 94.2 fL (81.0-99.0); MEAN CORPUSCULAR HEMOGLOBIN 30.6 pg (27.0-31.0); MEAN CORPUSCULAR HGB CONC 32.5 g/dL (33.0-37.0); MEAN PLATELET VOLUME 12.8 fL (7.2-11.7); MONO # 0.6 K/uL (0.0-0.8); MONO % 10.4 % (0.0-10.0); RED CELL DISTRIBUTION WIDTH 13.6 % (11.5-14.5); WHITE BLOOD COUNT 6.2 K/uL (4.8-10.8)
[2016-10-07 18:46] LABS: POTASSIUM 2.9 mmol/L (3.6-5.2)
[2016-10-07 18:48] LABS: BILIRUBIN,TOTAL 0.7 mg/dL (0.2-1.3)
[2016-10-07 18:49] LABS: ALB/GLOB RATIO 1.1 (1.0-2.1); TOTAL PROTEIN 7.2 g/dL (6.3-8.3)
[2016-10-07 18:50] LABS: CALCIUM 8.2 mg/dl (8.6-10.4)
[2016-10-07 19:02] LABS: TROPONIN I 0.04 ng/mL (0.00-0.120)
--- NOTE | 2016-10-07 19:36 | C.PDOC ---
History Of Present Illness 71 y/o female presents to the ED with complains of acute on chronic right thigh pain. Pt brought in by EMS from dialysis, received full treatment, dialysis on Tuesdays, and Saturdays. Pt denies fall or injury. PMHx right hip fracture with replacement. Time Seen by Provider: 10/07/16 18:06 Chief Complaint (Nursing): Lower Extremity Problem/Injury History Per: Patient History/Exam Limitations: no limitations Onset/Duration Of Symptoms: Hrs Current Symptoms Are (Timing): Still Present Severity: Moderate Recent travel outside of the [place]: No Past Medical History Reviewed: Historical Data, Nursing Documentation, Vital Signs Vital Signs: Last Vital Signs Temp 98.8 F 10/07/16 18:00 Pulse 78 10/07/16 18:00 Resp 18 10/07/16 18:00 BP 187/98 H 10/07/16 18:00 Pulse Ox 98 10/07/16 20:19 - Medical History PMH: CHF, Diabetes, HTN, End Stage Renal Disease, Chronic Kidney Disease Surgical History: CABG (2001) - [facility] Procedures APPLICATION OF SPLINT (09/15/13) COMPRESSION OF BACK USING PRESSURE DRESSING (03/20/16) COMPRESSION OF RIGHT UPPER LEG USING PRESSURE DRESSING (03/20/16) DRAINAGE OF BACK SKIN, EXTERNAL APPROACH (03/20/16) DRAINAGE OF BUTTOCK SKIN, EXTERNAL APPROACH (03/20/16) EXCISION OF BACK SKIN, EXTERNAL APPROACH (03/20/16) EXCISION OF BUTTOCK SKIN, EXTERNAL APPROACH (03/20/16) EXTRACTION OF BACK SKIN, EXTERNAL APPROACH (03/20/16) HEMODIALYSIS (08/11/14) INSERTION OF INFUSION DEV INTO SUP VENA CAVA, PERC APPROACH (09/14/16) INSERTION OF INFUSION DEVICE INTO R ATRIUM, PERC APPROACH (10/21/15) PERFORMANCE OF URINARY FILTRATION, MULTIPLE (03/20/16) PERFORMANCE OF URINARY FILTRATION, SINGLE (09/14/16) REPOSITION RIGHT UPPER FEMUR WITH INT FIX, PERC APPROACH (02/23/16) TRANSFUSE NONAUT PLATELETS IN PERIPH VEIN, PERC (03/20/16) TRANSFUSE NONAUT RED BLOOD CELLS IN PERIPH VEIN, PERC (03/20/16) VENOUS CATHETERIZATION FOR RENAL DIALYSIS (01/05/13) Family History: States: Unknown Family Hx - Social History Hx Tobacco Use: No Hx Alcohol Use: No Hx Substance Use: No - Immunization History Hx Tetanus Toxoid Vaccination: Yes Hx Influenza Vaccination: Yes Hx Pneumococcal Vaccination: Yes Review Of Systems Except As Marked, All Systems Reviewed And Found Negative. Musculoskeletal: Positive for: Other (right thigh pain) Neurological: Negative for: Weakness, Numbness Physical Exam - Physical Exam Appears: Non-toxic, No Acute Distress, Other (sleeping) Skin: Warm, Dry, No Rash Head: Atraumatic, Normacephalic Eye(s): right: Other (blind) Chest: Symmetrical Cardiovascular: Rhythm Regular Respiratory: Normal Breath Sounds, No Rales, No Rhonchi, No Wheezing Gastrointestinal/Abdominal: Soft, No Tenderness Extremity: Tenderness (superficial tenderness to right thigh), No Pedal Edema, No Deformity Neurological/Psych: Oriented x3, Normal Speech ED Course And Treatment - Laboratory Results Result Diagrams: 10/07/16 18:34 10/07/16 18:34 Lab Interpretation: Abnormal (c/w ESRD on HD, mild hypokalemia, mild hyperglycemia) ECG: Interpreted By Me ECG Rhythm: Sinus Rhythm, R BBB ECG Interpretation: Normal Rate From EC O2 Sat by Pulse Oximetry: 98 (room air) Pulse Ox Interpretation: Normal - Radiology CXR: Interpreted by Me CXR Interpretation: Yes: No Acute Disease - Other Rad R hip X-Ray: Interpreted by Me (good prostesis, no fx.) Reevaluation Time: 20:17 Reassessment Condition: Improved - Physician Consult Information Outcome Of Conversation: 2030: d/w Dr. Merchant in ED- ok to Obs Medical Decision Making Medical Decision Making: ? chronic R thigh pain, prior R hip surgery, no new findings, low susp of infection. mild electrolyte abnormalities c/w ESRD on HD mild hypokalemia NOT repleated as d/w Dr. Merchant. Disposition Doctor Will See Patient In The: Hospital Counseled Patient/Family Regarding: Studies Performed, Diagnosis - Disposition Disposition: HOSPITALIZED Disposition Time: 20:30 Condition: GOOD - Clinical Impression Clinical Impression: ESRD (end stage renal disease), Diabetes mellitus, Leg pain, right - Scribe Statement The provider has reviewed the documentation as recorded by the Lizz Perez Provider Attestation: All medical record entries made by the Lizz were at my direction and personally dictated by me. I have reviewed the chart and agree that the record accurately reflects my personal performance of the history, physical exam, medical decision making, and the department course for this patient. I have also personally directed, reviewed, and agree with the discharge instructions and disposition.
[2016-10-07] MEDS ORDERED: Oxycodone/Acetaminophen 5/325 mg Tab PO PRN (21:20)
--- NOTE | 2016-10-07 22:49 | CP.PCM.HP ---
History of Present Illness - History of Present Illness History of Present Illness: Cheif complain: missed HD, shortness of breath 71 y/r old female presents to the ED with complains of acute on chronic right thigh pain. Pt brought in by EMS from dialysis, received full treatment, dialysis on Tuesdays, and Saturdays. Pt denies fall or injury. PMHx right hip fracture with replacement Present on Admission - Present on Admission Any Indicators Present on Admission: No Review of Systems - Review of Systems Systems not reviewed;Unavailable: Acuity of Condition - Constitutional Constitutional: Fatigue, Weakness - Cardiovascular Cardiovascular: Dyspnea, Lightheadedness, Palpitations - Respiratory Respiratory: Cough, Dyspnea, Excessive Mucous Production Past Patient History - Past Medical History & Family History Past Medical History?: Yes - Past Social History Smoking Status: Never Smoked - CARDIAC Hx Congestive Heart Failure: Yes Hx Hypertension: Yes - PULMONARY Hx Respiratory Disorders: No - NEUROLOGICAL Hx Neurological Disorder: Yes Hx Dizziness: Yes - HEENT Hx HEENT Problems: Yes Other/Comment: right eye-blind;left eye-blurry - RENAL Hx Chronic Kidney Disease: Yes - ENDOCRINE/METABOLIC Hx Diabetes Mellitus Type 2: Yes - HEMATOLOGICAL/ONCOLOGICAL Hx Blood Disorders: No - INTEGUMENTARY Hx Dermatological Problems: No - MUSCULOSKELETAL/RHEUMATOLOGICAL Hx Falls: No - GASTROINTESTINAL Hx Gastrointestinal Disorders: No - GENITOURINARY/GYNECOLOGICAL Hx Genitourinary Disorders: No - PSYCHIATRIC Hx Substance Use: No - SURGICAL HISTORY Hx Coronary Artery Bypass Graft: Yes (2001) - ANESTHESIA Hx Anesthesia: Yes Hx Anesthesia Reactions: No Hx Malignant Hyperthermia: No Meds Home Medications: Home Medication List Medication Instructions Recorded Confirmed Type Gabapentin [Neurontin] 100 mg PO HS #30 cap 10/08/16 Rx Allergies/Adverse Reactions: Allergies Allergy/AdvReac Type Severity Reaction Status Date / Time No Known Allergies Allergy Verified 10/07/16 20:21 Physical Exam - Constitutional Appears: No Acute Distress - Head Exam Head Exam: ATRAUMATIC, NORMAL INSPECTION, NORMOCEPHALIC - Eye Exam Eye Exam: EOMI, Normal appearance, PERRL Pupil Exam: NORMAL ACCOMODATION, PERRL - Respiratory Exam Respiratory Exam: Decreased Breath Sounds, Rales, Rhonchi, Wheezes - Cardiovascular Exam Cardiovascular Exam: Irregular Rhythm, +S1, +S2 - GI/Abdominal Exam GI & Abdominal Exam: Normal Bowel Sounds, Soft. absent: Tenderness Results - Vital Signs Recent Vital Signs: Last Vital Signs Temp 98.5 F 10/07/16 21:12 Pulse 71 10/07/16 21:12 Resp 18 10/07/16 21:12 BP 184/85 H 10/07/16 21:12 Pulse Ox 99 10/07/16 21:12 - Labs Result Diagrams: 10/07/16 18:34 10/07/16 18:34 Labs: Laboratory Results - last 24 hr 10/07/16 22:34 POC Glucose (mg/dL) 357 H Assessment & Plan (1) Leg pain, right Status: Acute (2) Diabetes mellitus Status: Chronic (3) ESRD (end stage renal disease) Assessment and Plan: s/p missed HD Status: Chronic (4) Sinus tachycardia Assessment and Plan: jamshid robins rule out a.fib cardiology follow up by Status: Acute
[2016-10-07] MEDS: (Novolog) Insulin Aspart, Recombinant 100 u/ml 10 ml vial SC SCH (22:52)
--- NOTE | 2016-10-08 07:39 | RAD ---
PROCEDURE: CHEST RADIOGRAPH, 1 VIEW HISTORY: SOB COMPARISON: 09/14/2016 FINDINGS: LUNGS: Mild venous congestion. Consolidative patchy airspace opacities in the right infrahilar region and left lung base. Question trace bilateral pleural effusions. Biapical pleural thickening with upper lobe granulomatous changes. Right central venous catheter with tip extending into the right atrium. PLEURA: As above. CARDIOVASCULAR: Status post median sternotomy and CABG. OSSEOUS STRUCTURES: Cardiomegaly. Small sclerotic focus in the proximal right humerus which may represent a chondroid lesion. VISUALIZED UPPER ABDOMEN: Normal. OTHER FINDINGS: Surgical clips in the left axilla. IMPRESSION: Mild venous congestion. Consolidative patchy airspace opacities in the right infrahilar region and left lung base. Question trace bilateral pleural effusions. Biapical pleural thickening with upper lobe granulomatous changes. Right central venous catheter with tip extending into the right atrium.
[2016-10-08 08:03] VITALS: O2SAT 99
[2016-10-08] MEDS ORDERED: Multiple Vitamins Tab PO SCH (10:00)
[2016-10-08] MEDS: (Novolog) Insulin Aspart, Recombinant 100 u/ml 10 ml vial SC SCH ×2 (10:30→14:28)
--- NOTE | 2016-10-08 11:46 | RAD ---
PROCEDURE: Right Hip Radiographs. HISTORY: chronic R femur/hip pain, no fall COMPARISON: 02/24/2016 FINDINGS: BONES: Status post ORIF right intertrochanteric fracture. No new fracture. JOINTS: Normal. SOFT TISSUES: Normal. OTHER FINDINGS: Right iliac vascular stent. Left femoral vascular stent. IMPRESSION: No acute abnormality.
--- NOTE | 2016-10-08 15:21 | CP.PCM.PN ---
Subjective - Date & Time of Evaluation Date of Evaluation: 10/08/16 Time of Evaluation: 11:00 - Subjective Subjective: Pt seen an d examined today, comfortable denies any chest pain, sob, dizziness Objective - Vital Signs/Intake and Output Vital Signs (last 24 hours): Temp Pulse Resp BP Pulse Ox 98.1 F 64 20 190/68 H 99 10/08/16 08:01 10/08/16 08:01 10/08/16 08:01 10/08/16 10:31 10/08/16 08:01 - Medications Medications: Current Medications Acetaminophen (Tylenol 325mg Tab) 650 mg PO Q6 PRN PRN Reason: Headache Last Admin: 10/08/16 10:31 Dose: 650 mg Aspirin (Aspirin Chewable) 81 mg PO DAILY [facility] Last Admin: 10/08/16 10:31 Dose: 81 mg Carvedilol (Coreg) 12.5 mg PO BID [facility] Last Admin: 10/08/16 10:31 Dose: 12.5 mg Clonazepam (Klonopin) 0.5 mg PO HS PRN PRN Reason: Anxiety Clopidogrel Bisulfate (Plavix) 75 mg PO DAILY [facility] Last Admin: 10/08/16 10:31 Dose: 75 mg Famotidine (Pepcid) 20 mg PO DAILY [facility] Last Admin: 10/08/16 10:31 Dose: 20 mg Gabapentin (Neurontin) 100 mg PO BID [facility] Last Admin: 10/08/16 10:31 Dose: 100 mg Heparin Sodium (Porcine) (Heparin) 5,000 units SC Q8 [facility] Last Admin: 10/08/16 14:28 Dose: 5,000 units Hydralazine HCl (Apresoline) 100 mg PO Q8 [facility] Last Admin: 10/08/16 14:28 Dose: 100 mg Insulin Aspart (Novolog) 0 unit SC ACHS [facility] PRN Reason: Protocol Last Admin: 10/08/16 14:28 Dose: 2 unit Multivitamins (Hexavitamin) 1 tab PO DAILY [facility] Last Admin: 10/08/16 10:31 Dose: 1 tab Oxycodone/Acetaminophen (Percocet 5/325 Mg Tab) 1 tab PO Q4 PRN PRN Reason: Pain, moderate (4-7) Stop: 10/11/16 00:01 Rosuvastatin Calcium (Crestor) 10 mg PO HS [facility] Last Admin: 10/07/16 22:37 Dose: 10 mg Assessment and Plan - Assessment and Plan (Free Text) Assessment: A/P 71 yr old female with HX of ESRD on HD admitted for R lower extremity pain X-Ray- status post ORIF right intertrochanteric fracture. No new fracture JOINTS :Normal. SOFT TISSUES:Normal Right iliac vascular stent. Left femoral vascular stent. No acute abnormality. D/W Dr. Merchant, stable for discharge home otday an df/u with Dr. Merchant office in 1 week and continue HD as scheduled Discharge plan discussed with patient fadumo castelan at bedside , who understands and agrees with plan
[2016-10-08 15:30] VITALS: BP 158/62; PULSE 65; RESP 18; TEMP 98.2
--- NOTE | 2016-10-08 22:47 | CP.PCM.DIS ---
Provider - Provider Date of Admission: 10/07/16 20:18 Attending physician: Sergio Merchant MD Time Spent in preparation of Discharge (in minutes): 30 Diagnosis - Discharge Diagnosis (1) Leg pain, right Status: Acute (2) Diabetes mellitus Status: Chronic (3) ESRD (end stage renal disease) Status: Chronic (4) Sinus tachycardia Status: Acute Hospital Course - Lab Results Lab Results: Most Recent Lab Values WBC 6.2 K/uL (4.8-10.8) 10/07/16 18:34 RBC 3.33 Mil/uL (3.80-5.20) L 10/07/16 18:34 Hgb 10.2 g/dL (11.0-16.0) L 10/07/16 18:34 Hct 31.4 % (34.0-47.0) L 10/07/16 18:34 MCV 94.2 fL (81.0-99.0) 10/07/16 18:34 MCH 30.6 pg (27.0-31.0) 10/07/16 18:34 MCHC 32.5 g/dL (33.0-37.0) L 10/07/16 18:34 RDW 13.6 % (11.5-14.5) 10/07/16 18:34 Plt Count 129 K/uL (130-400) L 10/07/16 18:34 MPV 12.8 fL (7.2-11.7) H 10/07/16 18:34 Neut % (Auto) 64.6 % (50.0-75.0) 10/07/16 18:34 Lymph % (Auto) 23.5 % (20.0-40.0) 10/07/16 18:34 [place] % (Auto) 10.4 % (0.0-10.0) H 10/07/16 18:34 Eos % (Auto) 1.1 % (0.0-4.0) 10/07/16 18:34 Baso % (Auto) 0.4 % (0.0-2.0) 10/07/16 18:34 Neut # 4.0 K/uL (1.8-7.0) 10/07/16 18:34 Lymph # 1.4 K/uL (1.0-4.3) 10/07/16 18:34 [place] # 0.6 K/uL (0.0-0.8) 10/07/16 18:34 Eos # 0.1 K/uL (0.0-0.7) 10/07/16 18:34 Baso # 0.0 K/uL (0.0-0.2) 10/07/16 18:34 Sodium 137 mmol/L (132-148) 10/07/16 18:34 Potassium 2.9 mmol/L (3.6-5.2) L 10/07/16 18:34 Chloride 92 mmol/L (98-107) L 10/07/16 18:34 Carbon Dioxide 33 mmol/L (22-30) H 10/07/16 18:34 Anion Gap 15 (10-20) 10/07/16 18:34 BUN 23 mg/dL (7-17) H 10/07/16 18:34 Creatinine 1.7 MG/DL (0.7-1.2) H 10/07/16 18:34 Est GFR ( Amer) 36 10/07/16 18:34 Est GFR (Non-Af Amer) 30 10/07/16 18:34 POC Glucose (mg/dL) 234 mg/dL (65-110) H 10/08/16 11:18 Random Glucose 221 mg/dL (65-105) H 10/07/16 18:34 Calcium 8.2 mg/dl (8.6-10.4) L 10/07/16 18:34 Total Bilirubin 0.7 mg/dL (0.2-1.3) 10/07/16 18:34 AST 38 U/L (14-36) H D 10/07/16 18:34 ALT 31 U/L (9-52) 10/07/16 18:34 Alkaline Phosphatase 85 U/L (38-126) 10/07/16 18:34 Troponin I 0.0400 ng/mL (0.00-0.120) 10/07/16 18:34 NT-Pro-B Natriuret Pep 814272 pg/mL (0-900) H 10/07/16 18:34 Total Protein 7.2 g/dL (6.3-8.3) 10/07/16 18:34 Albumin 3.8 g/dL (3.5-5.0) 10/07/16 18:34 Globulin 3.5 gm/dL (2.2-3.9) 10/07/16 18:34 Albumin/Globulin Ratio 1.1 (1.0-2.1) 10/07/16 18:34 - Hospital Course Hospital Course: t seen an d examined today, comfortable denies any chest pain, sob, dizziness Discharge Exam - Head Exam Head Exam: ATRAUMATIC, NORMAL INSPECTION, NORMOCEPHALIC - Eye Exam Eye Exam: EOMI, Normal appearance, PERRL Pupil Exam: NORMAL ACCOMODATION, PERRL - ENT Exam ENT Exam: Mucous Membranes Moist - Respiratory Exam Respiratory Exam: Clear to PA & Lateral, NORMAL BREATHING PATTERN - Cardiovascular Exam Cardiovascular Exam: REGULAR RHYTHM, +S1, +S2 - GI/Abdominal Exam GI & Abdominal Exam: Normal Bowel Sounds - Neurological Exam Neurological exam: Alert, CN II-XII Intact, Normal Gait, Oriented x3, Reflexes Normal - Psychiatric Exam Psychiatric exam: Normal Affect, Normal Mood Discharge Plan - Discharge Medications Prescriptions: Gabapentin [Neurontin] 100 mg PO HS #30 cap - Follow Up Plan Condition: GOOD Disposition: HOME/ ROUTINE Instructions: Dialysis Diet (DC), End Stage Kidney Disease (DC), Perma-cath Placement (DC) Additional Instructions: Please f/u with Dr. Merchant office in 1 week continue HD as scheduled Resume [facility] service for home care and home PT Resume home medication
--- NOTE | 2016-10-13 20:48 | CARD ---
APPROVED REPORT EKG Measurement Heart [id number] <Conclusion> Sinus rhythm with marked sinus arrhythmia Right bundle branch block Abnormal ECG
== END 2016-10-08 18:48 | disposition home or self-care (01) ==
LOC: C.ER 17:51 → C.5T 20:18
PROVIDERS: ADMIT Internal Medicine; ATTEND Internal Medicine
DX: M79.651 Pain in right thigh (principal); Z96.641 Presence of right artificial hip joint; E11.22 Type 2 diabetes mellitus with diabetic chronic kidney disease; I13.2 Hypertensive heart and chronic kidney disease with heart failure and with stage 5 chronic kidney disease, or end stage renal disease; I50.9 Heart failure, unspecified; N18.6 End stage renal disease; Z99.2 Dependence on renal dialysis; Z95.828 Presence of other vascular implants and grafts; R00.0 Tachycardia, unspecified; I25.10 Atherosclerotic heart disease of native coronary artery without angina pectoris; Z95.1 Presence of aortocoronary bypass graft; Z98.890 Other specified postprocedural states